=== PATIENT | female | born 1995 | race Caucasian/White ===

== ENCOUNTER 2017-04-25 10:24 | Emergency (ER) | payer MEDICAID ==
--- NOTE | 2017-04-25 11:04 | XRAY Preliminary Report ---
Exam: XR Wrist 4 View LT IMPRESSION: Normal wrist radiography. [facility] SITE ID: [id number]
--- NOTE | 2017-04-25 11:07 | XRAY Report ---
EXAM: LEFT WRIST RADIOGRAPHY EXAM DATE: 04/25/2017 10:40 AM. CLINICAL HISTORY: Left wrist hyperextension injury, pain. COMPARISON: None. TECHNIQUE: 4 views. FINDINGS: Bones: Normal. No fractures or bone lesions. Joints: Normal. No subluxations. Soft Tissues: Normal. No soft tissue swelling. IMPRESSION: Normal wrist radiography. [facility] Referring Provider Line: [phone] SITE ID: [id number]
[2017-04-25] MEDS ORDERED: ACETAMINOPHEN 325 MG TABLET PO STA (12:03)
[2017-04-25] MEDS ORDERED: ONDANSETRON ODT 4 MG TABLET TL STA (12:03)
[2017-04-25] MEDS ORDERED: ONDANSETRON ODT 4 MG TABLET ONE ×2 (12:06→12:13)
[2017-04-25] MEDS ORDERED: ACETAMINOPHEN 325 MG TABLET PO ONE (12:07)
[2017-04-25] MEDS ORDERED: HYDROcod/ACETAM 5/325 MG TABLET PO STA (12:09)
--- NOTE | 2017-04-25 12:12 | ED Physician Documentation ---
PD HPI UPPER EXT INJURY - Stated complaint Stated Complaint: LEFT HAND PX - Chief complaint Chief Complaint: Ext Problem - History obtained from History obtained from: Patient, Family - History of Present Illness Location: Left, Wrist Type of injury: Other (states was using her hand to get up and now has pain in the L wrist.) Where injury occurred: Home Timing - onset: Yesterday Timing - duration: Days (1) Timing - details: Gradual onset Pain level max: 6 Pain level now: 5 Improved by: Rest, Ice, Immobilization Worsened by: Moving, Palpating Associated symptoms: No: Weakness, Numbness, Tingling, Swelling, Discolored Similar symptoms before: Has not had sx before Review of Systems : denies: Now EGA Neurologic: denies: Focal weakness, Numbness PD PAST MEDICAL HISTORY - Past Medical History Past Medical History: Yes Psych: Anxiety, Post traumatic stress disorder - Past Surgical History Past Surgical History: Yes HEENT: Tonsil/Adenoidectomy - Present Medications Home Medications: Ambulatory Orders Medication Instructions Recorded Confirmed Gabapentin 0 mg PO DAILY 04/25/17 04/25/17 Hydrocodone/Acetaminophen 1 - 2 each PO Q6H PRN #14 tablet 04/25/17 [Hydrocodon-Acetaminophen 5-325] - Allergies Allergies/Adverse Reactions: Allergies Allergy/AdvReac Type Severity Reaction Status Date / Time NSAIDS (Non-Steroidal Allergy Anaphylaxis Verified 04/25/17 10:34 Anti-Inflamma - Social History Does the pt smoke?: Yes Smoking Status: Current every day smoker PD ED PE NORMAL - Vitals Vital signs reviewed: Yes - General General: Alert and oriented X 3, No acute distress - Derm Derm: Warm and dry - Extremities Extremities: Other (L wrist - Diffusely tender to palpation about the left wrist. No specific point tenderness. No scaphoid tenderness. Neurovascularly intact) - Neuro Neuro: Alert and oriented X 3 - Psych Psych: Normal mood, Normal affect Results - Vitals Vitals: Vital Signs - 24 hr 04/25/17 10:30 Temperature 36.4 C L Heart Rate 87 Respiratory 18 Rate Blood Pressure 96/62 O2 Saturation 97 Oxygen O2 Source Room air - Rads (name of study) Left wrist x-ray Radiology: Prelim report reviewed, EMP read contemporaneously, See rad report ( Normal) PD MEDICAL DECISION MAKING - ED course Complexity details: reviewed results, re-evaluated patient, considered differential, d/w patient, d/w family ED course: Patient is a 22-year-old female who presents to the emergency department with left wrist pain after pushing off on the left wrist. No acute findings on x- ray. No snuffbox tenderness to suggest occult scaphoid fracture. Placed in a Velcro wrist splint for comfort. Will prescribe a small amount of pain medication for home and have her follow-up with her doctor. Patient and family counseled regarding signs and symptoms for which I believe and urgent re- evaluation would be necessary. Patient with good understanding of and agreement to plan and is comfortable going home at this time This document was made in part using voice recognition software. While efforts are made to proofread this document, sound alike and grammatical errors may occur. Departure - Departure Disposition: 01 Home, Self Care Clinical Impression: Left wrist sprain Qualifiers: Encounter type: initial encounter Qualified Code(s): S63.502A - Unspecified sprain of left wrist, initial encounter Condition: Good Instructions: ED Sprain Wrist Follow-Up: your,doctor in 1 week [Other] Prescriptions: Hydrocodone/Acetaminophen [Hydrocodon-Acetaminophen 5-325] 1 - 2 each PO Q6H PRN #14 tablet PRN Reason: pain Comments: Your x-ray is normal today. Wear the splint for the next several days. Then take the splint off and start to gently move your wrist. If you are still having pain in 1 week, you should follow-up with your doctor for repeat x-rays. Do not drink alcohol or drive while on narcotic pain medicine. Note that many narcotic pain relievers also contain tylenol/acetaminophen. Please ensure that your total dose of acetaminophen from all sources does not exceed 3 grams (3000mg) per day. You may constipated on this medication, take a stool softener such as "Colace" twice a day while you are on it. Also recommend a [id number]-kws-jtgbykw laxative such as senna or MiraLAX any day that you do not have a bowel movement. If you received narcotic pain medication in the emergency department, do not drive or operate machinery for the next 24 hours.
[2017-04-25] MEDS ORDERED: HYDROcod/ACETAM 5/325 MG TABLET ONE ×2 (12:13→12:14)
[2017-04-25 12:24] VITALS: BP 100/71
== END 2017-04-25 12:35 | disposition home or self-care (01) ==
LOC: ED 10:24
DX: S63.502A Unspecified sprain of left wrist, initial encounter (principal); X50.9XXA Other and unspecified overexertion or strenuous movements or postures, initial encounter; F17.200 Nicotine dependence, unspecified, uncomplicated
CPT/HCPCS: 73110; 99283; A9270; Q0162

== ENCOUNTER 2017-05-21 16:40 | Emergency (ER) | payer MEDICAID ==
[2017-05-21] MEDS ORDERED: HYDROcod/ACETAM 5/325 MG TABLET PO STA (17:29)
[2017-05-21 17:32] LABS: BILIRUBIN,URINE NEGATIVE (NEGATIVE); PH,URINE 6.5 PH (5.0-7.5)
[2017-05-21 17:34] LABS: UA CHARGE (STRIP ONLY) YES; UR CULTURE IF IND NOT INDICATED
[2017-05-21 17:35] LABS: HCG UR QUAL NEGATIVE
[2017-05-21] MEDS ORDERED: ONDANSETRON ODT 4 MG TABLET TL STA (17:40)
[2017-05-21] MEDS ORDERED: HYDROcod/ACETAM 5/325 MG TABLET ONE (17:46)
[2017-05-21] MEDS ORDERED: ONDANSETRON ODT 4 MG TABLET ONE (17:46)
--- NOTE | 2017-05-21 18:02 | ED Physician Documentation ---
PD HPI ABD PAIN - Stated complaint Stated Complaint: BACK/KIDNEY PX - Chief complaint Chief Complaint: UTI - History obtained from History obtained from: Patient - History of Present Illness Timing - duration: Weeks (1) Timing - details: Intermittant Associated symptoms: Nausea. No: Fever, Vomiting Similar symptoms before: Diagnosis (Reports history of similar symptoms with kidney infection about one year ago.) - Additional information Additional information: The patient is a 22-year-old female who presents with mid to lower back pain that started about one week ago and has been since that time. The pain is worse with urination. She reports frequency of urination and low-grade fever. She is unsure of her last menstrual period, stating she has an IUD. She reports history of similar symptoms about one year ago with a kidney infection. Review of Systems Constitutional: reports: Fever (low-grade) Nose: denies: Congestion Cardiac: denies: Chest pain / pressure Respiratory: denies: Dyspnea, Cough GI: reports: Nausea. denies: Vomiting, Diarrhea : reports: Frequency, LMP (unsure). denies: Dysuria, Vaginal bleeding Skin: denies: Rash Musculoskeletal: reports: Back pain (mid to lower back). denies: Extremity pain Neurologic: denies: Focal weakness, Numbness, Headache PD PAST MEDICAL HISTORY - Past Medical History Cardiovascular: None Respiratory: None Endocrine/Autoimmune: None GI: None Psych: Anxiety, Post traumatic stress disorder - Past Surgical History Past Surgical History: Yes HEENT: Tonsil/Adenoidectomy - Present Medications Home Medications: Ambulatory Orders Medication Instructions Recorded Confirmed Gabapentin 0 mg PO DAILY 04/25/17 04/25/17 Hydrocodone/Acetaminophen 1 - 2 each PO Q6H PRN #14 tablet 04/25/17 [Hydrocodon-Acetaminophen 5-325] Promethazine [Phenergan] 25 - 50 mg PO Q6H PRN #10 tab 05/21/17 - Allergies Allergies/Adverse Reactions: Allergies Allergy/AdvReac Type Severity Reaction Status Date / Time NSAIDS (Non-Steroidal Allergy Anaphylaxis Verified 05/21/17 16:59 Anti-Inflamma - Social History Does the pt smoke?: Yes Smoking Status: Current every day smoker PD ED PE NORMAL - Vitals Vital signs reviewed: Yes (normal) - General General: Alert and oriented X 3, Well developed/nourished - HEENT HEENT: Atraumatic, EOMI - Neck Neck: No adenopathy, No JVD - Cardiac Cardiac: RRR, No murmur - Respiratory Respiratory: No respiratory distress, Clear bilaterally - Abdomen Abdomen: Soft, Non tender, No organomegaly - Back Back: Other (Mild tenderness to palpation of the paraspinous musculature bilaterally in the lower thoracic region.) - Derm Derm: No rash - Extremities Extremities: No edema, No calf tenderness / cord - Neuro Neuro: Alert and oriented X 3, No motor deficit, No sensory deficit Results - Vitals Vitals: Oxygen O2 Source Room air - Labs Labs: Laboratory Tests 05/21/17 05/21/17 05/21/17 17:25 17:25 17:25 WBC RBC Hgb Hct MCV MCH MCHC RDW Plt Count MPV Neut # Lymph # [place] # Eos # Baso # Absolute Nucleated RBC Nucleated RBCs Sodium Potassium Chloride Carbon Dioxide Anion Gap BUN Creatinine Estimated GFR (MDRD) Glucose Calcium Total Bilirubin AST ALT Alkaline Phosphatase Total Protein Albumin Globulin Albumin/Globulin Ratio Lipase Urine Color YELLOW Urine Clarity CLEAR Urine pH 6.5 Ur Specific [place] 1.010 1.010 Urine Protein NEGATIVE Urine Glucose (UA) NEGATIVE Urine Ketones NEGATIVE Urine Occult Blood NEGATIVE Urine Nitrite NEGATIVE Urine Bilirubin NEGATIVE Urine Urobilinogen 0.2 (NORMAL) Ur Leukocyte Esterase NEGATIVE Ur Microscopic Review NOT INDICATED Urine Culture Comments NOT INDICATED Urine HCG, Qual NEGATIVE Urine Opiates Screen NEGATIVE Ur Oxycodone Screen NEGATIVE Urine Methadone Screen NEGATIVE Ur Propoxyphene Screen NEGATIVE Ur Barbiturates Screen NEGATIVE Ur Tricyclics Screen NEGATIVE Ur Phencyclidine Scrn NEGATIVE Ur Amphetamine Screen NEGATIVE U Methamphetamines Scrn NEGATIVE U Benzodiazepines Scrn NEGATIVE Urine Cocaine Screen NEGATIVE U Cannabinoids Screen POSITIVE H 05/21/17 05/21/17 18:25 18:25 WBC 9.5 RBC 4.61 Hgb 14.2 Hct 42.7 MCV 92.7 MCH 30.9 MCHC 33.3 RDW 13.1 Plt Count 275 MPV 7.9 Neut # 5.4 Lymph # 3.3 [place] # 0.6 Eos # 0.1 Baso # 0.0 Absolute Nucleated RBC 0.01 Nucleated RBCs 0.1 Sodium 137 Potassium 4.0 Chloride 104 Carbon Dioxide 26 Anion Gap 7.0 BUN 12 Creatinine 0.5 Estimated GFR (MDRD) 153 Glucose 101 H Calcium 10.7 H Total Bilirubin 0.5 AST 24 ALT 21 Alkaline Phosphatase 42 Total Protein 7.5 Albumin 4.6 Globulin 2.9 Albumin/Globulin Ratio 1.6 Lipase 23 Urine Color Urine Clarity Urine pH Ur Specific [place] Urine Protein Urine Glucose (UA) Urine Ketones Urine Occult Blood Urine Nitrite Urine Bilirubin Urine Urobilinogen Ur Leukocyte Esterase Ur Microscopic Review Urine Culture Comments Urine HCG, Qual Urine Opiates Screen Ur Oxycodone Screen Urine Methadone Screen Ur Propoxyphene Screen Ur Barbiturates Screen Ur Tricyclics Screen Ur Phencyclidine Scrn Ur Amphetamine Screen U Methamphetamines Scrn U Benzodiazepines Scrn Urine Cocaine Screen U Cannabinoids Screen PD MEDICAL DECISION MAKING - ED course Complexity details: reviewed results, re-evaluated patient, considered differential, d/w patient ED course: The patient's presentation is significant for mild lower back pain of uncertain etiology. There is no evidence to suggest a urinary tract infection or pyelonephritis. I doubt pancreatitis, with a normal lipase. CBC and chemistry panel are normal, as is urinalysis. Treatment in the emergency department included administration of ondansetron 4 mg orally, and Vicodin 1 tablet orally. She is being discharged with a prescription for Phenergan. I discussed with her the results of her workup, symptomatic treatment and outpatient follow-up, as well as potentially worrisome signs or symptoms that should prompt reevaluation in the emergency department. Departure - Departure Disposition: 01 Home, Self Care Clinical Impression: Nausea Back pain Qualifiers: Back pain location: thoracic back pain Chronicity: acute Back pain laterality: bilateral Qualified Code(s): M54.6 - Pain in thoracic spine Condition: Stable Instructions: ED Flank Pain Uncertain Cause Prescriptions: Promethazine [Phenergan] 25 - 50 mg PO Q6H PRN #10 tab PRN Reason: Nausea / Vomiting Comments: 1. Drink plenty of fluids. 2. You can use Phenergan as prescribed if needed for nausea. 3. You can use Tylenol, up to 650 mg 4 times daily if needed for pain. 4. Follow-up with primary physician within 2 weeks if you can schedule an appointment. 5. Return to the emergency department if you develop increasing pain, persistent vomiting, or otherwise worsening symptoms. Discharge Date/Time: 05/21/17 19:00
[2017-05-21 18:21] VITALS: BP 120/81
[2017-05-21 18:36] LABS: BASOPHILS % (AUTO) 0.4 %; EOSINOPHILS # (AUTO) 0.1 10^3/uL (0.0-0.7); EOSINOPHILS % (AUTO) 0.9 %; HCT - HEMATOCRIT 42.7 % (37.0-47.0); HGB - HEMOGLOBIN 14.2 g/dL (12.0-16.0); LYMPHOCYTES # (AUTO) 3.3 10^3/uL (1.5-3.5); LYMPHOCYTES % (AUTO) 34.9 %; MEAN CORPUSCULAR HEMOGLOBIN 30.9 pg (27.0-31.0); MEAN CORPUSCULAR HGB CONC 33.3 g/dL (32.0-36.0); MEAN CORPUSCULAR VOLUME 92.7 fL (81.0-99.0); MEAN PLATELET VOLUME 7.9 fL (7.9-10.8); MONOCYTES # (AUTO) 0.6 10^3/uL (0.0-1.0); MONOCYTES % (AUTO) 6.8 %; NEUTROPHILS # (AUTO) 5.4 10^3/uL (1.5-6.6); NUCLEATED RED BLOOD CELLS AUTO 0.1 /100WBC; RED BLOOD COUNT 4.61 10^6/uL (4.20-5.40); RED CELL DISTRIBUTION WIDTH 13.1 % (12.0-15.0); UNCORRECTED WHITE BLOOD COUNT 9.5 x10^3/uL; WHITE BLOOD COUNT 9.5 x10^3/uL (4.8-10.8)
[2017-05-21 18:47] LABS: ALBUMIN/GLOBULIN RATIO 1.6 (1.0-2.2); BILIRUBIN,TOTAL 0.5 mg/dL (0.2-1.0); CALCIUM 10.7 mg/dL (8.5-10.3); CREATININE 0.5 mg/dL (0.4-1.0); TOTAL PROTEIN 7.5 g/dL (6.7-8.2)
== END 2017-05-21 19:00 | disposition home or self-care (01) ==
LOC: ED 16:40
DX: M54.6 Pain in thoracic spine (principal); F17.200 Nicotine dependence, unspecified, uncomplicated
CPT/HCPCS: 36415; 80053; 80306; 81003; 81025; 83690; 85025; 99283; A9270; Q0162; 81001; 87086

== ENCOUNTER 2017-06-25 18:13 | Emergency (ER) | payer MEDICAID, OTHER ==
[2017-06-25] MEDS ORDERED: HYDROmorphone 1 MG/ML SYRINGE IM STA (18:25)
--- NOTE | 2017-06-25 18:27 | ED Physician Documentation ---
PD HPI Fall - Stated complaint Stated Complaint: L LE PX - History obtained from History obtained from: Patient - History of Present Illness Mechanism of injury: Other (She was walking down stairs at work and she slipped and a box fell on her knee and she kind of crumpled down and now complains of burning pain down the entirety of the left leg focused in the knee and the hip. She has not tried to walk since the accident. No back pain or other injuries. No possibility of .) Review of Systems Constitutional: reports: Reviewed and negative Cardiac: reports: Reviewed and negative Respiratory: reports: Reviewed and negative GI: denies: Abdominal Pain, Nausea PD PAST MEDICAL HISTORY - Past Medical History Cardiovascular: None Respiratory: None Endocrine/Autoimmune: None GI: None Psych: Anxiety, Post traumatic stress disorder - Past Surgical History Past Surgical History: Yes HEENT: Tonsil/Adenoidectomy - Present Medications Home Medications: Ambulatory Orders Medication Instructions Recorded Confirmed Gabapentin 300 mg PO TID #30 capsule 06/25/17 HYDROcod/ACETAM 5/325 [[place] 5/325] 1 - 2 ea PO Q6H PRN #15 tablet 06/25/17 - Allergies Allergies/Adverse Reactions: Allergies Allergy/AdvReac Type Severity Reaction Status Date / Time NSAIDS (Non-Steroidal Allergy Anaphylaxis Verified 05/21/17 16:59 Anti-Inflamma - Social History Does the pt smoke?: Yes Smoking Status: Current every day smoker PD ED PE NORMAL - Vitals Vital signs reviewed: Yes - General General: Alert and oriented X 3, No acute distress - Abdomen Abdomen: Normal bowel sounds, Soft, Non tender - Back Back: No CVA TTP, No spinal TTP - Extremities Extremities: Other (Left knee has a little bit of swelling but no effusion, she is severely limited range of motion due to pain and diffuse tenderness about the knee but no focal bony tenderness. The hip is mildly tender with palpation but she does not have inguinal pain with internal or external rotation. Of note she has diminished sensation especially in the lateral left calf with burning pain down the whole leg more consistent with sciatica than any acute injury of the leg itself. She hasequal patellar reflexes, But she does have a somewhat diminished Achilles reflex on the left but that may be due to pain. I am unable to test strength throughout the left leg, because she is limited by pain.) - Neuro Neuro: Alert and oriented X 3, Normal speech - Psych Psych: Normal mood, Normal affect Results - Vitals Vitals: Vital Signs - 24 hr 06/25/17 06/25/17 18:24 18:53 Temperature 36.3 C L Heart Rate 95 76 Respiratory 18 18 Rate Blood Pressure 108/72 O2 Saturation 100 96 Oxygen O2 Source Room air PD MEDICAL DECISION MAKING - ED course ED course: 22-year-old woman presents with a left leg injury that actually seems clinically more coincident with sciatica than anything else, x-rays were pursued of the most painful spots without relevant findings. Feeling better after milligram of Dilaudid IM. Departure - Departure Disposition: Home, Self Care Clinical Impression: Sciatica of left side Sprain of left knee/leg Qualifiers: Encounter type: initial encounter Qualified Code(s): S83.92XA - Sprain of unspecified site of left knee, initial encounter Condition: Good Record reviewed to determine appropriate education?: Yes Instructions: ED Sciatica Follow-Up: [facility] [Provider Group] Prescriptions: Gabapentin 300 mg PO TID #30 capsule HYDROcod/ACETAM 5/325 [[place] 5/325] 1 - 2 ea PO Q6H PRN #15 tablet PRN Reason: Pain Comments: Call your doctor to arrange a follow-up appointment, make the next available appointment. In the interim, return anytime if worse or if new symptoms develop. Do not drink or drive while taking narcotic pain medication. Note that many narcotic pain relievers also contain Tylenol/acetaminophen. Please ensure that your total dose of acetaminophen from all sources does not exceed 3 g (3000 mg) per day. You may get constipated while on this medication. Take a stool softener such as Colace twice a day while you are on it. Also add an [id number] laxative such as senna or MiraLAX on any day that you do not have a bowel movement. If you received a narcotic pain medication or sedative while in the emergency department, do not drive for the next 24 hours. Forms: Activity restrictions
[2017-06-25 18:31] VITALS: BP 108/72
[2017-06-25] MEDS ORDERED: HYDROmorphone 1 MG/ML SYRINGE ONE (18:35)
--- NOTE | 2017-06-25 19:42 | XRAY Preliminary Report ---
Exam: XR Knee 4 View LT IMPRESSION: Normal knee radiography. [facility] SITE ID: [id number]
--- NOTE | 2017-06-25 19:44 | XRAY Report ---
EXAM: LEFT KNEE RADIOGRAPHY EXAM DATE: 06/25/2017 06:55 PM. CLINICAL HISTORY: Hip/knee pain after a fall. COMPARISON: None. TECHNIQUE: 4 views. FINDINGS: Bones: Normal. No fractures or bone lesions. Joints: Normal. No effusion. No subluxations. Soft Tissues: Normal. No soft tissue swelling. IMPRESSION: Normal knee radiography. [facility] Referring Provider Line: [phone] SITE ID: [id number]
[2017-06-25] MEDS ORDERED: HYDROcod/ACETAM 5/325 MG TABLET PO STA (19:46)
[2017-06-25] MEDS ORDERED: GABAPENTIN 100 MG CAPSULE PO STA (19:46)
--- NOTE | 2017-06-25 19:50 | XRAY Preliminary Report ---
Exam: XR Hip w/Pelvis 2-3V LT IMPRESSION: Normal pelvis and hip radiography. [facility] SITE ID: [id number]
--- NOTE | 2017-06-25 19:53 | XRAY Report ---
EXAM: LEFT HIP AND PELVIS RADIOGRAPHY EXAM DATE: 06/25/2017 07:30 PM. HISTORY: Hip/knee pain after a fall. COMPARISONS: None. TECHNIQUE: 1 view of the pelvis and 1 view of the hip. FINDINGS: Bones: Normal. No fracture or bone lesion. Joints: The bilateral hip, pubis symphysis, and sacroiliac joints are preserved. Soft Tissues: Normal. No soft tissue swelling. IMPRESSION: Normal pelvis and hip radiography. [facility] Referring Provider Line: [phone] SITE ID: [id number]
[2017-06-25] MEDS ORDERED: GABAPENTIN 300 MG CAPSULE ONE (19:56)
[2017-06-25] MEDS ORDERED: HYDROcod/ACETAM 5/325 MG TABLET ONE (19:56)
== END 2017-06-25 20:09 | disposition home or self-care (01) ==
LOC: ED 18:13
DX: M54.32 Sciatica, left side (principal); S83.92XA Sprain of unspecified site of left knee, initial encounter; W18.40XA Slipping, tripping and stumbling without falling, unspecified, initial encounter; W22.8XXA Striking against or struck by other objects, initial encounter; Y93.01 Activity, walking, marching and hiking; Y99.0 Civilian activity done for income or pay; F17.200 Nicotine dependence, unspecified, uncomplicated
CPT/HCPCS: 1040M; 73502; 73564; 96372; 99283; A9270; J1170

== ENCOUNTER 2017-06-28 19:29 | Emergency (ER) | payer OTHER, MEDICAID ==
[2017-06-28] MEDS ORDERED: HYDROmorphone 1 MG/ML SYRINGE IM STA (20:04)
[2017-06-28] MEDS ORDERED: DEXAMETHASONE 10 MG/ML VIAL IM STA (20:05)
--- NOTE | 2017-06-28 20:07 | ED Physician Documentation ---
History of Present Illness - Stated complaint Stated Complaint: L HIP,LEG PAIN - Chief complaint Chief Complaint: Ext Problem - History obtained from History obtained from: Patient, Family - History of Present Illness Timing: Other (She was seen her on Wednesday after a minor injury and had some symptoms concerning for an acute lumbar radiculopathy/sciatica. Over the weekend she really has not gotten any better with the gabapentin and hydrocodone and now is almost completely insensate to the left foot without saddle anesthesia or fevers. There is no incontinence.) Review of Systems Constitutional: denies: Fever, Chills Cardiac: denies: Chest pain / pressure, Palpitations Respiratory: denies: Dyspnea, Cough GI: denies: Abdominal Pain PD PAST MEDICAL HISTORY - Past Medical History Past Medical History: Yes Cardiovascular: None Respiratory: None Endocrine/Autoimmune: None GI: None Psych: Anxiety, Post traumatic stress disorder - Past Surgical History Past Surgical History: Yes HEENT: Tonsil/Adenoidectomy - Present Medications Home Medications: Ambulatory Orders Medication Instructions Recorded Confirmed Gabapentin 300 mg PO TID #30 capsule 06/25/17 06/28/17 HYDROcod/ACETAM 5/325 [[place] 5/325] 1 - 2 ea PO Q6H PRN #15 tablet 06/25/17 Oxycodone HCl/Acetaminophen 1 - 2 tab PO Q4H PRN #15 tablet 06/28/17 [Percocet 5-325 mg Tablet] predniSONE [Deltasone] 20 mg PO [id number] #21 tab 06/28/17 - Allergies Allergies/Adverse Reactions: Allergies Allergy/AdvReac Type Severity Reaction Status Date / Time NSAIDS (Non-Steroidal Allergy Anaphylaxis Verified 06/28/17 19:41 Anti-Inflamma - Social History Does the pt smoke?: Yes Smoking Status: Current every day smoker Does the pt drink ETOH?: No Does the pt have substance abuse?: No Substance Use and Type: Marijuana - Immunizations Immunizations are current?: No PD ED PE NORMAL - Vitals Vital signs reviewed: Yes - General General: Alert and oriented X 3, No acute distress - Abdomen Abdomen: Soft, Non tender - Back Back: No spinal TTP - Extremities Extremities: Other (She has equal patellar reflexes and hyperesthesia on the lateral side of the left thigh with equal medial thigh sensation. She is almost insensate the left side of the lateral foot. And has no Achilles reflex on the left.) - Neuro Neuro: Alert and oriented X 3, Normal speech - Psych Psych: Normal mood, Normal affect Results - Vitals Vitals: Vital Signs - 24 hr 06/28/17 19:36 Temperature 36.9 C Heart Rate 87 Respiratory 17 Rate Blood Pressure 104/72 O2 Saturation 98 Oxygen O2 Source Room air PD MEDICAL DECISION MAKING - ED course ED course: 22-year-old woman with now a pretty clear lumbar radiculopathy at the L5-S1 level on the left without evidence of cauda equina or infectious symptoms. 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 Departure - Departure Disposition: 01 Home, Self Care Clinical Impression: Lumbar radiculopathy, acute, Sciatica of left side Condition: Good Record reviewed to determine appropriate education?: Yes Instructions: ED Sciatica Follow-Up: [facility] [Provider Group] Prescriptions: predniSONE [Deltasone] 20 mg PO [id number] #21 tab Oxycodone HCl/Acetaminophen [Percocet 5-325 mg Tablet] 1 - 2 tab PO Q4H PRN #15 tablet PRN Reason: Pain Comments: RETURN IF YOU WORSEN, DEVELOP FEVERS. NEED TO SET UP PRIMARY CARE PATRICIA Forms: Activity restrictions
[2017-06-28] MEDS ORDERED: HYDROmorphone 1 MG/ML SYRINGE ONE (20:14)
[2017-06-28] MEDS ORDERED: DEXAMETHASONE 10 MG/ML VIAL ONE (20:15)
[2017-06-28] MEDS ORDERED: DEXAMETHASONE 10 MG/ML VIAL PO STA (20:21)
[2017-06-28] MEDS ORDERED: CHERRY SYRUP 10 ML UDC PO ONE (20:24)
[2017-06-28 20:40] VITALS: BP 113/73
== END 2017-06-28 20:38 | disposition home or self-care (01) ==
LOC: ED 19:29
DX: M54.42 Lumbago with sciatica, left side (principal); M54.16 Radiculopathy, lumbar region; F17.200 Nicotine dependence, unspecified, uncomplicated
CPT/HCPCS: 96372; 99282; 99283; A9270; J1170

== ENCOUNTER 2017-07-03 18:40 | Emergency (ER) | payer MEDICAID, OTHER ==
[2017-07-03] MEDS ORDERED: ACETAMINOPHEN 325 MG TABLET PO STA (20:20)
[2017-07-03] MEDS ORDERED: CYCLOBENZAPRINE 10 MG TABLET PO STA (20:20)
[2017-07-03] MEDS ORDERED: DEXAMETHASONE 10 MG/ML VIAL PO STA (20:20)
--- NOTE | 2017-07-03 20:21 | ED Physician Documentation ---
PD HPI LOWER EXT INJURY - Stated complaint Stated Complaint: LEG PX - Chief complaint Chief Complaint: Ext Problem - History obtained from History obtained from: Patient, Friend - History of Present Illness PD HPI LOW EXT INJURY LOCATION: Left, Upper leg, Lower leg, Buttock Type of injury: Fall Where injury occurred: Work Timing - onset: How many weeks ago (1) Timing - details: Abrupt onset Worsened by: Moving, Palpating Associated symptoms: Numbness. No: Weakness Contributing factors: No: Anticoagulated, Prior ortho surgery Similar symptoms before: Work up / diagnostics, Treatment Recently seen: Emergency Dept - Additional information Additional information: Patient is a 22 year old female who is presenting to the emergency department for left leg pain. patient states that she fell and hurt her knee at work about a week ago. patient states that since that time she has had muscle spasms in her leg and continual pain. Patient denied any new trauma. Review of Systems Constitutional: denies: Fever, Chills Eyes: denies: Discharge, Irritation Ears: denies: Ear pain, Drainage/discharge Nose: denies: Rhinorrhea / runny nose, Congestion Cardiac: denies: Chest pain / pressure GI: denies: Nausea, Vomiting : denies: Dysuria, Frequency, Discharge, Vaginal bleeding Skin: denies: Rash, Lesions Musculoskeletal: reports: Extremity pain, Joint pain. denies: Extremity swelling, Joint swelling Neurologic: reports: Generalized weakness, Numbness. denies: Difficulty speaking, Near syncope, Altered mental status, Headache, Head injury Immunocompromised: denies: Immunocompromised PD PAST MEDICAL HISTORY - Past Medical History Cardiovascular: None Respiratory: None Endocrine/Autoimmune: None GI: None Psych: Anxiety, Post traumatic stress disorder - Past Surgical History Past Surgical History: Yes HEENT: Tonsil/Adenoidectomy - Present Medications Home Medications: Ambulatory Orders Medication Instructions Recorded Confirmed predniSONE [Deltasone] 20 mg PO [id number] #21 tab 06/28/17 07/03/17 Cyclobenzaprine [Flexeril] 10 mg PO TID PRN #10 tablet 07/03/17 - Allergies Allergies/Adverse Reactions: Allergies Allergy/AdvReac Type Severity Reaction Status Date / Time NSAIDS (Non-Steroidal Allergy Anaphylaxis Verified 07/03/17 19:07 Anti-Inflamma ketorolac tromethamine * AdvReac Emesis Verified 07/03/17 20:17 [From Toradol] - Social History Does the pt smoke?: Yes Smoking Status: Current every day smoker Does the pt drink ETOH?: No Does the pt have substance abuse?: No - Immunizations Immunizations are current?: No PD ED PE NORMAL - Vitals Vital signs reviewed: Yes - General General: Alert and oriented X 3, No acute distress - HEENT HEENT: Atraumatic, PERRL - Neck Neck: Supple, no meningeal sign - Cardiac Cardiac: RRR, No murmur - Abdomen Abdomen: Non distended - Derm Derm: Normal color, Warm and dry, No rash - Extremities Extremities: No deformity, No edema - Neuro Neuro: Alert and oriented X 3, No motor deficit, Normal speech PD ED PE EXPANDED - Extremities Extremities: Left hip (tenderness of left gluteal region wiht radiation down left leg, no rash or deformity. full ROM) Results - Vitals Vitals: Vital Signs - 24 hr 07/03/17 07/03/17 19:03 20:36 Temperature 36.5 C 36.6 C Heart Rate 54 L 53 L Respiratory 18 18 Rate Blood Pressure 118/86 H 118/79 O2 Saturation 99 98 Oxygen O2 Source Room air PD MEDICAL DECISION MAKING - ED course Complexity details: reviewed old records, reviewed results, re-evaluated patient , considered differential, d/w patient ED course: Patient was seen and examined at bedside. patient was well appearing and in no acute distress. NO further imaging was required. patient had no focal deficits and was stable for discharge with outpatient follow up. Departure - Departure Disposition: 01 Home, Self Care Clinical Impression: Sciatica of left side Condition: Good Instructions: ED Sciatica Follow-Up: primary,care provider [Other] - Within 1 week Prescriptions: Cyclobenzaprine [Flexeril] 10 mg PO TID PRN #10 tablet PRN Reason: Spasms Comments: You will need to follow up with your pmd on . these types of injuries can take awhile to heal. You should apply heat to the affected area and try stretching. You can take tylenol for pain, and flexeri. If you take the flexeril you cannot drive or operate heavy machinery. Discharge Date/Time: 07/03/17 20:36
[2017-07-03] MEDS ORDERED: DEXAMETHASONE 10 MG/ML VIAL ONE (20:30)
[2017-07-03] MEDS ORDERED: CYCLOBENZAPRINE 10 MG TABLET PO ONE (20:30)
[2017-07-03] MEDS ORDERED: ACETAMINOPHEN 325 MG TABLET PO ONE (20:30)
[2017-07-03 20:38] VITALS: BP 118/79
== END 2017-07-03 20:36 | disposition home or self-care (01) ==
LOC: ED 18:40
DX: M54.32 Sciatica, left side (principal); F17.200 Nicotine dependence, unspecified, uncomplicated; Z91.81 History of falling
CPT/HCPCS: 99283; A9270

== ENCOUNTER 2017-07-20 12:56 | Outpatient (CLI) | payer MEDICAID ==
[~2017-07-20 12:56] MED LIST: ALBUTEROL NEB 2.5 MG/3 ML INH ONE
== END 2017-07-20 12:57 | disposition home or self-care (01) ==
LOC: RT 12:56
PROVIDERS: ATTEND Nurse Practitioner Family
DX: R05 Cough (principal)
CPT/HCPCS: 94664; J7613

== ENCOUNTER 2017-09-21 09:26 | Emergency (ER) | payer MEDICAID ==
[2017-09-21] MEDS ORDERED: DEXAMETHASONE 10 MG/ML VIAL PO STA (10:27)
[2017-09-21] MEDS ORDERED: IPRATROPIUM/ALBUTEROL 3 ML NEB INH STA (10:27)
[2017-09-21] MEDS ORDERED: DEXAMETHASONE 10 MG/ML VIAL ONE (10:40)
[2017-09-21] MEDS ORDERED: IPRATROPIUM/ALBUTEROL 3 ML NEB INH ONE (10:41)
[2017-09-21 11:50] VITALS: BP 99/64
--- NOTE | 2017-09-21 11:50 | XRAY Preliminary Report ---
Exam: XR CHEST 2 VIEW PA/LAT IMPRESSION: 1. Mild central peribronchial thickening, question bronchiolitis. 2. No acute infiltrate or consolidation appreciated. [facility] SITE ID: [id number]
--- NOTE | 2017-09-21 11:53 | XRAY Report ---
EXAM: CHEST RADIOGRAPHY EXAM DATE: 09/21/2017 11:22 AM. CLINICAL HISTORY: Cough and dyspnea. COMPARISON: None available. TECHNIQUE: 2 views. FINDINGS: Lungs/Pleura: No focal infiltrate or consolidation. No pneumothorax or pleural effusion. Mild central peribronchial thickening appears to be present. Mediastinum: Heart and mediastinal contours are unremarkable. Other: Convex-right thoracic scoliosis with a Santana angle measuring approximately 34 degrees. IMPRESSION: 1. Mild central peribronchial thickening, question bronchiolitis. 2. No acute infiltrate or consolidation appreciated. [facility] Referring Provider Line: [phone] SITE ID: [id number]
[2017-09-21] MEDS ORDERED: LEVALBUTEROL 1.25 MG/0.5 ML NEB INH STA (12:00)
[2017-09-21] MEDS ORDERED: LEVALBUTEROL 1.25 MG/0.5 ML NEB INH ONE (12:11)
[2017-09-21] MEDS ORDERED: SODIUM CHLORIDE INHALATION 3 ML NEB ONE (12:12)
--- NOTE | 2017-09-21 12:17 | ED Physician Documentation ---
PD HPI DYSPNEA - Stated complaint Stated Complaint: HURTS TO BREATH - Chief complaint Chief Complaint: Resp - History obtained from History obtained from: Patient - History of Present Illness Timing - onset: Today Timing - onset during: Rest Timing - details: Still present Associated symptoms: Cough Similar symptoms before: Diagnosis (History of asthma.) - Treatment prior to arrival Treatment prior to arrival: albuterol inhaler without relief - Additional information Additional information: The patient is a 22-year-old female with history of asthma, who presents complaining of "it hurts to breathe." She reports congestion and productive cough. She denies fever, headache, or sore throat. She awoke this morning with increased difficulty breathing, not improved with her albuterol inhaler. She does not smoke cigarettes. She occasionally smokes marijuana. Review of Systems Constitutional: denies: Fever Ears: denies: Tinnitus/ringing Nose: reports: Congestion Throat: reports: Sore throat Cardiac: reports: Chest pain / pressure (with inspiration.). denies: Palpitations Respiratory: reports: Dyspnea, Cough, Wheezing GI: denies: Abdominal Pain, Nausea, Vomiting : denies: Dysuria Skin: denies: Rash Musculoskeletal: denies: Back pain Neurologic: denies: Headache PD PAST MEDICAL HISTORY - Past Medical History Past Medical History: Yes Cardiovascular: None Respiratory: Asthma Endocrine/Autoimmune: None GI: None Psych: Anxiety, Post traumatic stress disorder Other Past Medical History: scoliosis - Past Surgical History Past Surgical History: Yes HEENT: Tonsil/Adenoidectomy - Present Medications Home Medications: Ambulatory Orders Medication Instructions Recorded Confirmed predniSONE [Deltasone] 20 mg PO [id number] #21 tab 06/28/17 07/03/17 Cyclobenzaprine [Flexeril] 10 mg PO TID PRN #10 tablet 07/03/17 Levalbuterol [Xopenex] 1.25 mg INH RTQ4H #30 neb 09/21/17 - Allergies Allergies/Adverse Reactions: Allergies Allergy/AdvReac Type Severity Reaction Status Date / Time NSAIDS (Non-Steroidal Allergy Anaphylaxis Verified 07/03/17 19:07 Anti-Inflamma ketorolac tromethamine * AdvReac Emesis Verified 07/03/17 20:17 [From Toradol] - Social History Does the pt smoke?: No Smoking Status: Never smoker Does the pt drink ETOH?: Yes Does the pt have substance abuse?: Yes Substance Use and Type: Marijuana - Immunizations Immunizations are current?: No Immunizations: Other immun not current - POLST Patient has POLST: No PD ED PE NORMAL - Vitals Vital signs reviewed: Yes (normal) - General General: Alert and oriented X 3, Well developed/nourished - HEENT HEENT: Atraumatic, EOMI, Ears normal, Pharynx benign - Neck Neck: Supple, no meningeal sign, No adenopathy, No JVD - Cardiac Cardiac: RRR, No murmur - Respiratory Respiratory: Other (Diffuse expiratory wheezing, with prolonged expiratory phase.) - Abdomen Abdomen: Soft, Non tender - Back Back: No CVA TTP - Derm Derm: No rash - Extremities Extremities: No edema, No calf tenderness / cord - Neuro Neuro: Alert and oriented X 3, No motor deficit, Normal speech Results - Vitals Vitals: Oxygen O2 Source Room air - Rads (name of study) CXR Radiology: Prelim report reviewed, EMP read contemporaneously, See rad report ( Mild central peribronchial thickening, question bronchiolitis. No acute infiltrate or consolidation appreciated.) PD MEDICAL DECISION MAKING - ED course Complexity details: reviewed old records, reviewed results, re-evaluated patient , considered differential, d/w patient ED course: The patient's presentation is most consistent with acute asthmatic bronchitis. Her chest x-ray reveals peribronchial thickening, without discrete infiltrate or consolidation. Treatment in the emergency department included administration of DuoNeb nebulizer, and dexamethasone 10 mg orally. She continued to have significant wheezing and poor air movement. Subsequently Xopenex nebulizer was administered, with good results. Following Xopened treatment she felt subjectively much improved, and re-auscultation of her chest reveals much improved air movement with only a few scattered wheezes. She is being discharged with a prescription for Xopenex inhaler. I discussed with her symptomatic treatment, outpatient follow-up, as well as potentially worrisome signs or symptoms that should prompt reevaluation in the emergency department. Departure - Departure Disposition: 01 Home, Self Care Clinical Impression: Bronchitis Asthma Qualifiers: Asthma severity: moderate Asthma persistence: unspecified Asthma complication type: with acute exacerbation Qualified Code(s): J45.901 - Unspecified asthma with (acute) exacerbation Condition: Stable Instructions: ED Bronchitis Asthmatic Follow-Up: [facility] [Provider Group] Prescriptions: Levalbuterol [Xopenex] 1.25 mg INH RTQ4H #30 neb Comments: Use Xopenex nebulizer as frequently as every 4 hours if needed for difficulty breathing. He can use Tylenol or ibuprofen if needed for fever or discomfort. Follow up with your primary physician within 1 week. Call to schedule an appointment. Return to the emergency department if you develop increasing difficulty breathing, or otherwise worsening symptoms. Discharge Date/Time: 09/21/17 12:57
== END 2017-09-21 12:57 | disposition home or self-care (01) ==
LOC: ED 09:26
DX: J45.901 Unspecified asthma with (acute) exacerbation (principal)
CPT/HCPCS: 71020; 94640; 94664; 99283; A9270; J7620

== ENCOUNTER 2017-11-23 14:33 | Emergency (ER) | payer MEDICAID ==
--- NOTE | 2017-11-23 15:20 | ED Physician Documentation ---
History of Present Illness - Stated complaint Stated Complaint: FEMALE /L ARM PX - Chief complaint Chief Complaint: General - History obtained from History obtained from: Patient - History of Present Illness Timing: Other (She has had her Nexplanon for too long and now it is painful and she has a rash around it. She has taken several tests at home all were negative, this was necessitated by 4 months of missed periods.) Review of Systems Constitutional: denies: Fever, Chills Throat: reports: Reviewed and negative Cardiac: reports: Reviewed and negative Respiratory: reports: Reviewed and negative PD PAST MEDICAL HISTORY - Past Medical History Cardiovascular: None Respiratory: Asthma Endocrine/Autoimmune: None GI: None Psych: Anxiety, Post traumatic stress disorder - Past Surgical History Past Surgical History: Yes HEENT: Tonsil/Adenoidectomy - Present Medications Home Medications: Ambulatory Orders Medication Instructions Recorded Confirmed Beclomethasone 80 Mcg [Qvar 80] 11/23/17 - Allergies Allergies/Adverse Reactions: Allergies Allergy/AdvReac Type Severity Reaction Status Date / Time NSAIDS (Non-Steroidal Allergy Anaphylaxis Verified 07/03/17 19:07 Anti-Inflamma ketorolac tromethamine * AdvReac Emesis Verified 07/03/17 20:17 [From Toradol] - Social History Does the pt smoke?: No Smoking Status: Never smoker Does the pt drink ETOH?: Yes Does the pt have substance abuse?: Yes - Immunizations Immunizations are current?: No Immunizations: Other immun not current - POLST Patient has POLST: No PD ED PE NORMAL - Vitals Vital signs reviewed: Yes - General General: Alert and oriented X 3, No acute distress - Extremities Extremities: Other (Nexplanon palpable in the left brachial area without tenderness or evidence of infection.) - Neuro Neuro: Alert and oriented X 3, Normal speech Results - Vitals Vitals: Vital Signs - 24 hr 11/23/17 14:37 Temperature 36.5 C Heart Rate 66 Respiratory 18 Rate Blood Pressure 106/68 O2 Saturation 99 Oxygen O2 Source Room air - Labs Labs: Laboratory Tests 11/23/17 15:30 Ur Specific [place] 1.015 Urine HCG, Qual NEGATIVE Departure - Departure Disposition: Home, Self Care Clinical Impression: Encounter for surveillance of Nexplanon subdermal contraceptive Condition: Good Record reviewed to determine appropriate education?: Yes Follow-Up: [facility] [Provider Group] Comments: Call the clinic on this form to arrange a follow-up appointment to have her Nexplanon removed and discuss alternative methods of control. Return if worse.
[2017-11-23 16:03] LABS: HCG UR QUAL NEGATIVE
[2017-11-23 16:26] VITALS: BP 108/66
== END 2017-11-23 16:24 | disposition home or self-care (01) ==
LOC: ED 14:33
DX: Z30.8 Encounter for other contraceptive management (principal)
CPT/HCPCS: 81025; 99282; 99283

== ENCOUNTER 2018-01-31 18:00 | Emergency (ER) | payer MEDICAID ==
--- NOTE | 2018-01-31 19:57 | ED Physician Documentation ---
PD HPI HEENT - Stated complaint Stated Complaint: LEFT EAR HEARING DIFFICULTY - Chief complaint Chief Complaint: Heent - History obtained from History obtained from: Patient - History of Present Illness Timing - onset: How many weeks ago (has had URI/coguh symptoms for a week, and now with ear pains, tavo left, for a day.) Timing - duration: Days (1-2 days of ear pain, rapidly worsening), Weeks (of URI symptoms) Timing - details: Still present Location: Left ear, Sinuses, Nose Associated symptoms: Congestion, Rhinorrhea, Swollen nodes. No: Fever, Facial swelling Similar symptoms before: Has not had sx before Recently seen: Not recently seen Review of Systems Constitutional: reports: Chills. denies: Fever Ears: reports: Ear pain (for a day) Nose: reports: Rhinorrhea / runny nose, Congestion (for a week), Sinus pressure / pain Throat: denies: Sore throat Cardiac: denies: Chest pain / pressure Respiratory: reports: Cough. denies: Dyspnea, Wheezing GI: denies: Nausea, Vomiting, Diarrhea Skin: denies: Rash PD PAST MEDICAL HISTORY - Past Medical History Past Medical History: Yes Cardiovascular: None Respiratory: Asthma Endocrine/Autoimmune: None GI: None Psych: Anxiety, Post traumatic stress disorder - Past Surgical History Past Surgical History: Yes HEENT: Tonsil/Adenoidectomy - Present Medications Home Medications: Ambulatory Orders Medication Instructions Recorded Confirmed Beclomethasone 80 Mcg [Qvar 80] 11/23/17 Amoxicillin 500 mg PO TID #20 capsule 01/31/18 Cetirizine [ZyrTEC] 10 mg PO DAILY #15 tablet 01/31/18 Dexamethasone [Decadron] 4 mg PO DAILY #5 tablet 01/31/18 HYDROcod/ACETAM 5/325 [[place] 5/325] 1 tab PO Q6H PRN #15 tablet 01/31/18 - Allergies Allergies/Adverse Reactions: Allergies Allergy/AdvReac Type Severity Reaction Status Date / Time NSAIDS (Non-Steroidal Allergy Anaphylaxis Verified 07/03/17 19:07 Anti-Inflamma ketorolac tromethamine * AdvReac Emesis Verified 07/03/17 20:17 [From Toradol] - Social History Does the pt smoke?: No Smoking Status: Former smoker Does the pt drink ETOH?: Yes Does the pt have substance abuse?: Yes Substance Use and Type: Marijuana - Immunizations Immunizations are current?: No Immunizations: Other immun not current - POLST Patient has POLST: No PD ED PE NORMAL - Vitals Vital signs reviewed: Yes - General General: Alert and oriented X 3, Well developed/nourished, Other (appears in pain. ) - HEENT HEENT: Pharynx benign. No: Ears normal (both TMs very red, but left is tense bulging without rupture at this time. ) - Neck Neck: Supple, no meningeal sign, Other (anterior adenopathy) - Cardiac Cardiac: RRR, No murmur - Respiratory Respiratory: Clear bilaterally - Derm Derm: Normal color, Warm and dry, No rash Results - Vitals Vitals: Oxygen O2 Source Room air PD MEDICAL DECISION MAKING - ED course Complexity details: considered differential (significantly tight/bulging left TM from infection. Not ruptured as yet. ), d/w patient Departure - Departure Disposition: 01 Home, Self Care Clinical Impression: Otitis media Qualifiers: Otitis media type: suppurative Chronicity: acute Laterality: bilateral Recurrence: not specified as recurrent Spontaneous tympanic membrane rupture: without spontaneous rupture Qualified Code(s): H66.003 - Acute suppurative otitis media without spontaneous rupture of ear drum, bilateral Upper respiratory infection Qualifiers: URI type: unspecified URI Qualified Code(s): J06.9 - Acute upper respiratory infection, unspecified Condition: Stable Record reviewed to determine appropriate education?: Yes Instructions: ED Otitis Media Acute Adult, ED URI Viral W Wheezing Prescriptions: Amoxicillin 500 mg PO TID #20 capsule Cetirizine [ZyrTEC] 10 mg PO DAILY #15 tablet Dexamethasone [Decadron] 4 mg PO DAILY #5 tablet HYDROcod/ACETAM 5/325 [[place] 5/325] 1 tab PO Q6H PRN #15 tablet PRN Reason: Pain Comments: Drink lots of fluids. Use Tylenol if needed for mild pains. Add hydrocodone if needed for worse pain and also can act as a cough suppressant. Decadron steroid anti-inflammatory daily for 5 days to decrease inflammation and pain. Cetirizine antihistamine for 1-2 weeks. Amoxicillin 3 times a day for a week for the ear infections. The rest is likely viral head cold and should taper down with the above medications. Discharge Date/Time: 01/31/18 20:20
[2018-01-31] MEDS ORDERED: HYDROcod/ACETAM 5/325 MG TABLET PO STA (20:09)
[2018-01-31] MEDS ORDERED: DEXAMETHASONE 10 MG/ML VIAL PO STA (20:09)
[2018-01-31] MEDS ORDERED: CETIRIZINE 10 MG TABLET PO STA (20:09)
[2018-01-31] MEDS ORDERED: AMOXICILLIN 250 MG CAPSULE PO STA (20:09)
[2018-01-31 20:24] VITALS: BP 118/75
== END 2018-01-31 20:20 | disposition home or self-care (01) ==
LOC: ED 18:00
DX: H66.003 Acute suppurative otitis media without spontaneous rupture of ear drum, bilateral (principal); J06.9 Acute upper respiratory infection, unspecified; J45.909 Unspecified asthma, uncomplicated; Z87.891 Personal history of nicotine dependence
CPT/HCPCS: 99283; A9270

== ENCOUNTER 2018-02-07 18:10 | Emergency (ER) | payer MEDICAID ==
[2018-02-07 18:52] VITALS: BP 120/76
--- NOTE | 2018-02-07 21:50 | ED Physician Documentation ---
PD HPI URI - Stated complaint Stated Complaint: EAR/NECK PX - Chief complaint Chief Complaint: Heent - History obtained from History obtained from: Patient - History of Present Illness Timing - onset: How many weeks ago (1-2) Timing duration: Weeks Timing details: Gradual onset, Still present Associated symptoms: Ear pain (more on the right.), Nasal congestion, Sinus pain , Sore throat (in mornings), Swollen nodes. No: Fever, Productive cough Contributing factors: No: Sick contact Similar symptoms before: No diagnosis Review of Systems Constitutional: denies: Fever, Chills Nose: reports: Rhinorrhea / runny nose, Congestion, Sinus pressure / pain Throat: reports: Sore throat (in mornings). denies: Dental pain / toothache, Oral lesions / sores Respiratory: denies: Dyspnea, Cough GI: denies: Vomiting, Diarrhea Skin: denies: Rash PD PAST MEDICAL HISTORY - Past Medical History Past Medical History: Yes Cardiovascular: None Respiratory: Asthma Endocrine/Autoimmune: None GI: None Psych: Anxiety, Post traumatic stress disorder - Past Surgical History Past Surgical History: Yes HEENT: Tonsil/Adenoidectomy - Present Medications Home Medications: Ambulatory Orders Medication Instructions Recorded Confirmed Beclomethasone 80 Mcg [Qvar 80] 11/23/17 Amoxicillin 500 mg PO TID #20 capsule 01/31/18 Cetirizine [ZyrTEC] 10 mg PO DAILY #15 tablet 01/31/18 Dexamethasone [Decadron] 4 mg PO DAILY #5 tablet 01/31/18 HYDROcod/ACETAM 5/325 [[place] 5/325] 1 tab PO Q6H PRN #15 tablet 01/31/18 Dexamethasone [Decadron] 4 mg PO DAILY #5 tablet 02/07/18 Doxycycline Monohydrate 100 mg PO BID #14 tablet 02/07/18 HYDROcod/ACETAM 5/325 [[place] 5/325] 1 tab PO Q6H PRN #15 tablet 02/07/18 - Allergies Allergies/Adverse Reactions: Allergies Allergy/AdvReac Type Severity Reaction Status Date / Time NSAIDS (Non-Steroidal Allergy Anaphylaxis Verified 07/03/17 19:07 Anti-Inflamma ketorolac tromethamine * AdvReac Emesis Verified 07/03/17 20:17 [From Toradol] - Social History Does the pt smoke?: No Smoking Status: Never smoker Does the pt drink ETOH?: Yes Does the pt have substance abuse?: Yes - Immunizations Immunizations are current?: No Immunizations: Other immun not current - POLST Patient has POLST: No PD ED PE NORMAL - Vitals Vital signs reviewed: Yes - General General: Alert and oriented X 3, No acute distress, Well developed/nourished - HEENT HEENT: Ears normal, Moist mucous membranes, Pharynx benign, Other (sinus tenderness to percussion frontal and maxillary) - Neck Neck: Supple, no meningeal sign, Other (mild anterior adenopathy) - Cardiac Cardiac: RRR, No murmur - Respiratory Respiratory: Clear bilaterally - Abdomen Abdomen: Soft - Derm Derm: Normal color, Warm and dry, No rash - Neuro Neuro: Alert and oriented X 3, No motor deficit, Normal speech Results - Vitals Vitals: Oxygen O2 Source Room air PD MEDICAL DECISION MAKING - ED course Complexity details: considered differential, d/w patient Departure - Departure Disposition: 01 Home, Self Care Clinical Impression: Sinusitis Qualifiers: Sinusitis location: unspecified location Chronicity: acute Recurrence: non- recurrent Qualified Code(s): J01.90 - Acute sinusitis, unspecified Condition: Stable Record reviewed to determine appropriate education?: Yes Instructions: ED Sinusitis Abx Tx Prescriptions: Dexamethasone [Decadron] 4 mg PO DAILY #5 tablet Doxycycline Monohydrate 100 mg PO BID #14 tablet HYDROcod/ACETAM 5/325 [[place] 5/325] 1 tab PO Q6H PRN #15 tablet PRN Reason: Pain Comments: Your eardrum is just a little bit red at this point. I looked back at the records from last week and sorry I did not remember it right off hand but I do recall now from the description that had been very red and quite distended/ pressured. So it does look like it is improving in appearance. The infection may be more settled in the sinuses and so not as visible per se. We can try a different antibiotic and continue with some pain medicine and I would actually continue with the steroids a little bit longer as well. Recheck if still not improving over the next several days or so. Discharge Date/Time: 02/07/18 22:11
[2018-02-07] MEDS ORDERED: DOXYCYCLINE 100 MG TABLET PO STA (22:02)
[2018-02-07] MEDS ORDERED: DEXAMETHASONE 10 MG/ML VIAL PO STA (22:02)
[2018-02-07] MEDS ORDERED: HYDROcod/ACETAM 5/325 MG TABLET PO STA (22:02)
== END 2018-02-07 22:11 | disposition home or self-care (01) ==
LOC: ED 18:10
DX: J01.90 Acute sinusitis, unspecified (principal)
CPT/HCPCS: 99283; A9270

== ENCOUNTER 2018-05-01 19:31 | Emergency (ER) | payer MEDICAID ==
[2018-05-01 19:51] VITALS: BP 122/77
[2018-05-01] MEDS ORDERED: diphenhydrAMINE 25 MG CAPSULE PO STA (20:06)
--- NOTE | 2018-05-01 20:21 | ED Physician Documentation ---
PD HPI SKIN - Stated complaint Stated Complaint: R LEG SWELLING/BEE STING - Chief complaint Chief Complaint: General - History obtained from History obtained from: Patient - History of Present Illness Timing - onset: How many days ago (3) Timing - details: Abrupt onset, Still present Location: RLE Quality / character: Itchy, Painful Contributing factors: Insect bite /sting Similar symptoms before: No diagnosis Recently seen: Not recently seen - Additional information Additional information: Patient is a 23 year old female with no significant past medical history who is presenting to the emergency department for rash on her right ankle. patient was stung by an insect three days ago and it is not getting better so she came to the emergency department for evaluation. Review of Systems Ten Systems: 10 systems reviewed and negative Respiratory: denies: Dyspnea, Cough, Wheezing Skin: reports: Rash, Lesions Musculoskeletal: reports: Extremity pain PD PAST MEDICAL HISTORY - Past Medical History Past Medical History: Yes Cardiovascular: None Respiratory: Asthma Endocrine/Autoimmune: None GI: None Psych: Anxiety, Post traumatic stress disorder - Past Surgical History Past Surgical History: Yes HEENT: Tonsil/Adenoidectomy - Present Medications Home Medications: Ambulatory Orders Medication Instructions Recorded Confirmed Beclomethasone 80 Mcg [Qvar 80] 11/23/17 Amoxicillin 500 mg PO TID #20 capsule 01/31/18 Cetirizine [ZyrTEC] 10 mg PO DAILY #15 tablet 01/31/18 Dexamethasone [Decadron] 4 mg PO DAILY #5 tablet 01/31/18 HYDROcod/ACETAM 5/325 [[place] 5/325] 1 tab PO Q6H PRN #15 tablet 01/31/18 Dexamethasone [Decadron] 4 mg PO DAILY #5 tablet 02/07/18 Doxycycline Monohydrate 100 mg PO BID #14 tablet 02/07/18 HYDROcod/ACETAM 5/325 [[place] 5/325] 1 tab PO Q6H PRN #15 tablet 02/07/18 Cephalexin [Keflex] 500 mg PO Q6H 7 Days capsule 05/01/18 - Allergies Allergies/Adverse Reactions: Allergies Allergy/AdvReac Type Severity Reaction Status Date / Time NSAIDS (Non-Steroidal Allergy Anaphylaxis Verified 05/01/18 19:45 Anti-Inflamma ketorolac tromethamine * AdvReac Emesis Verified 05/01/18 19:45 [From Toradol] - Social History Does the pt smoke?: No Smoking Status: Never smoker Does the pt drink ETOH?: Yes Does the pt have substance abuse?: Yes - Immunizations Immunizations are current?: Yes Immunizations: Other immun not current - POLST Patient has POLST: No PD ED PE NORMAL - Vitals Vital signs reviewed: Yes - General General: Alert and oriented X 3, No acute distress - HEENT HEENT: Atraumatic - Cardiac Cardiac: RRR - Respiratory Respiratory: No respiratory distress, Clear bilaterally - Abdomen Abdomen: Non distended - Neuro Eye Opening: Spontaneous PD ED PE EXPANDED - Respiratory Respiratory: No: Wheezing - Extremities Feet visual: 1 - rash (consistent with uticaria) Results - Vitals Vitals: Vital Signs - 24 hr 05/01/18 19:42 Temperature 36.3 C L Heart Rate 92 Respiratory 16 Rate Blood Pressure 122/77 O2 Saturation 98 Oxygen O2 Source Room air PD MEDICAL DECISION MAKING - ED course Complexity details: reviewed old records, reviewed results, re-evaluated patient , considered differential, d/w patient ED course: Patient was seen and examined at bedside. Patient was well appearing and in no distress. patient was treated with benadryl and the area was outlined. Prescriptions were written in case a superimposed infection developed. Patient required no further work up at this time and was stable for discharge with outpatient follow up. - Sepsis Event Vital Signs: Vital Signs - 24 hr 05/01/18 19:42 Temperature 36.3 C L Heart Rate 92 Respiratory 16 Rate Blood Pressure 122/77 O2 Saturation 98 Oxygen O2 Source Room air Departure - Departure Disposition: 01 Home, Self Care Clinical Impression: Insect sting Condition: Good Instructions: Bites Stings Insect Follow-Up: Carrie Salmon ARNP [Primary Care Provider] - As Needed Prescriptions: Cephalexin [Keflex] 500 mg PO Q6H 7 Days capsule Comments: Your symptoms today are likely secondary to an insect sting. you will need to ice it and use benadryl every 6 hours. The areas has been outlines and if it spreads and gets more painful you can start the antibiotics. Otherwise, with treatment it should get better in the next few days. You can follow up with your doctor if symptoms persist. You may return to the emergency department at any time for new, worsening or uncontrollable symptoms.
== END 2018-05-01 20:34 | disposition home or self-care (01) ==
LOC: ED 19:31
DX: S90.561A Insect bite (nonvenomous), right ankle, initial encounter (principal); W57.XXXA Bitten or stung by nonvenomous insect and other nonvenomous arthropods, initial encounter
CPT/HCPCS: 99283; A9270

== ENCOUNTER 2018-05-16 21:53 | Emergency (ER) | payer MEDICAID ==
[2018-05-16 22:05] VITALS: BP 117/78
--- NOTE | 2018-05-16 22:47 | ED Physician Documentation ---
PD HPI HEENT - Stated complaint Stated Complaint: JAW PX - Chief complaint Chief Complaint: General - History obtained from History obtained from: Patient - History of Present Illness Timing - onset: How many days ago (several days to weeks of pain right lower tooth, cold sensitive and with chewing, but worse the past few days and with some swelling of the gum. Does not have dental coverage and says she can't afford a dentist.) Timing - details: Gradual onset, Waxing and waning Location: Tooth (right lower molar) Improves: No: Medication Worsens: Swalllowing, Temperatures, Other (chewing) Associated symptoms: No: Fever, Congestion, Facial swelling Similar symptoms before: Diagnosis (dental infections) Review of Systems Constitutional: denies: Fever Nose: denies: Rhinorrhea / runny nose, Congestion Throat: reports: Dental pain / toothache. denies: Sore throat Cardiac: denies: Chest pain / pressure Respiratory: denies: Cough Skin: denies: Rash, Lesions PD PAST MEDICAL HISTORY - Past Medical History Past Medical History: Yes Cardiovascular: None Respiratory: Asthma Endocrine/Autoimmune: None GI: None Psych: Anxiety, Post traumatic stress disorder - Past Surgical History Past Surgical History: Yes HEENT: Tonsil/Adenoidectomy - Present Medications Home Medications: Ambulatory Orders Medication Instructions Recorded Confirmed Beclomethasone 80 Mcg [Qvar 80] 1 puffs INH DAILY 11/23/17 Cetirizine [ZyrTEC] 10 mg PO DAILY #15 tablet 01/31/18 Albuterol 1 puffs INH BID 05/16/18 05/16/18 Clindamycin HCl [Cleocin HCl] 300 mg PO TID #20 capsule 05/16/18 HYDROcod/ACETAM 5/325 [[place] 5/325] 1 tab PO Q6H PRN #15 tablet 05/16/18 Naproxen 375 mg PO BID #20 tablet 05/16/18 Sertraline HCl [Zoloft] 200 mg PO DAILY 05/16/18 05/16/18 - Allergies Allergies/Adverse Reactions: Allergies Allergy/AdvReac Type Severity Reaction Status Date / Time NSAIDS (Non-Steroidal Allergy Anaphylaxis Verified 05/16/18 22:05 Anti-Inflamma ketorolac tromethamine * AdvReac Emesis Verified 05/16/18 22:05 [From Toradol] - Social History Does the pt smoke?: No Smoking Status: Never smoker Does the pt drink ETOH?: Yes Does the pt have substance abuse?: Yes - Immunizations Immunizations are current?: Yes Immunizations: Other immun not current - POLST Patient has POLST: No PD ED PE NORMAL - Vitals Vital signs reviewed: Yes - General General: Alert and oriented X 3, Well developed/nourished - HEENT HEENT: Moist mucous membranes, Pharynx benign, Dentition benign (not significant caries seen. There is tenderness to palpation right lower 2nd molar and some swelling of gum there. No fluctuance. No adenopathy. ) - Neck Neck: Supple, no meningeal sign, No adenopathy - Cardiac Cardiac: RRR, No murmur - Respiratory Respiratory: Clear bilaterally - Derm Derm: Normal color, Warm and dry, No rash - Neuro Neuro: Alert and oriented X 3, No motor deficit, Normal speech Results - Vitals Vitals: Oxygen O2 Source Room air PD MEDICAL DECISION MAKING - ED course Complexity details: considered differential (dental pain without significant caries, and has swelling of gum in that area c/w infection. She doesn't have dental coverage and says unable to afford dentist. ), d/w patient - Sepsis Event Vital Signs: Oxygen O2 Source Room air Departure - Departure Disposition: 01 Home, Self Care Clinical Impression: Pain, dental Condition: Stable Record reviewed to determine appropriate education?: Yes Instructions: ED Tooth Pain Follow-Up: Carrie Salmon ARNP [Primary Care Provider] - [facility] [Provider Group] Prescriptions: Clindamycin HCl [Cleocin HCl] 300 mg PO TID #20 capsule HYDROcod/ACETAM 5/325 [[place] 5/325] 1 tab PO Q6H PRN #15 tablet PRN Reason: Pain Naproxen 375 mg PO BID #20 tablet Comments: Clindamycin 3 times a day for a week for apparent dental infection. Naproxen twice daily for anti-inflammatory effect. Add Tylenol or hydrocodone if needed for pain. He can see if the [facility] clinic except your insurance. They have a dental clinic in [place]. Otherwise following up with a dentist will be the definitive way to take care of the tooth pain. Getting rid of the infection will improve it for now but the tooth ultimately needs repair. Discharge Date/Time: 05/16/18 23:08
[2018-05-16] MEDS ORDERED: CLINDAMYCIN 150 MG CAPSULE PO STA (22:58)
[2018-05-16] MEDS ORDERED: HYDROcod/ACETAM 5/325 MG TABLET PO STA (22:58)
== END 2018-05-16 23:08 | disposition home or self-care (01) ==
LOC: ED 21:53
DX: K08.89 Other specified disorders of teeth and supporting structures (principal)
CPT/HCPCS: 99283; A9270

== ENCOUNTER 2018-05-24 18:43 | Emergency (ER) | payer MEDICAID ==
[2018-05-24 19:25] LABS: BILIRUBIN,URINE NEGATIVE (NEGATIVE); GLUCOSE, URINE (UA) NEGATIVE (NEGATIVE); KETONES,URINE (UA) NEGATIVE (NEGATIVE); LEUKOCYTE ESTERASE, URINE SMALL (NEGATIVE); NITRITE,URINE NEGATIVE (NEGATIVE); OCCULT BLOOD,URINE NEGATIVE (NEGATIVE); PROTEIN,URINE NEGATIVE (NEGATIVE); UROBILINOGEN,URINE 0.2 (NORMAL) E.U./dL (NORMAL)
[2018-05-24 19:27] LABS: CLARITY,URINE HAZY (CLEAR)
[2018-05-24 19:28] LABS: HCG UR QUAL NEGATIVE
[2018-05-24 19:41] LABS: BACTERIA,URINE Rare /HPF (None Seen); RBC,URINE 0-5 /HPF (0-5); SQUAMOUS EPITHELIAL CELL,UR FEW Squamous (<= Few)
[2018-05-24] MEDS ORDERED: cefTRIAXone 1 GM VIAL IM STA (21:31)
[2018-05-24] MEDS ORDERED: LIDOCAINE 1% 2 ML VIAL SUBQ ONE (21:31)
[2018-05-24] MEDS ORDERED: ONDANSETRON ODT 4 MG TABLET TL STA (21:31)
--- NOTE | 2018-05-24 21:42 | ED Physician Documentation ---
PD HPI FEMALE - Stated complaint Stated Complaint: VOMITING/ABD PX/FEM - Chief complaint Chief Complaint: UTI - History obtained from History obtained from: Patient, Family - History of Present Illness Timing - onset: How many weeks ago (1) Timing - duration: Weeks (1) Timing - details: Gradual onset, Still present Associated symptoms: Abdominal pain, Dysuria, Urinary frequency Contributing factors: No: Similar symptoms before: Diagnosis (UTI) Recently seen: Emergency Dept - Additional information Additional information: Previously healthy 23-year-old female was seen in the emergency department 1 week ago placed on some clindamycin for a tooth abscess and this improved. She has separately over this past week developed urinary urgency frequency and dysuria she has now developed some left flank pain chills and nausea with vomiting. Review of Systems Constitutional: reports: Chills, Fatigue, Sweats. denies: Fever Eyes: denies: Decreased vision Ears: denies: Ear pain Nose: denies: Congestion Throat: denies: Sore throat Cardiac: denies: Chest pain / pressure, Palpitations Respiratory: denies: Dyspnea, Cough GI: reports: Abdominal Pain, Nausea, Vomiting. denies: Constipation, Diarrhea : reports: Dysuria, Frequency Skin: denies: Rash Musculoskeletal: reports: Back pain. denies: Neck pain Neurologic: denies: Generalized weakness, Focal weakness, Numbness PD PAST MEDICAL HISTORY - Past Medical History Cardiovascular: None Respiratory: Asthma Endocrine/Autoimmune: None GI: None Psych: Anxiety, Post traumatic stress disorder - Past Surgical History Past Surgical History: Yes HEENT: Tonsil/Adenoidectomy - Present Medications Home Medications: Ambulatory Orders Medication Instructions Recorded Confirmed Beclomethasone 80 Mcg [Qvar 80] 1 puffs INH DAILY 11/23/17 Cetirizine [ZyrTEC] 10 mg PO DAILY #15 tablet 01/31/18 Albuterol 1 puffs INH BID 05/16/18 05/16/18 HYDROcod/ACETAM 5/325 [[place] 5/325] 1 tab PO Q6H PRN #15 tablet 05/16/18 Naproxen 375 mg PO BID #20 tablet 05/16/18 Sertraline HCl [Zoloft] 200 mg PO DAILY 05/16/18 05/16/18 HYDROcod/ACETAM 5/325 [[place] 5/325] 1 - 2 ea PO Q6H PRN #15 tablet 05/24/18 Ondansetron Odt [Zofran] 4 mg TL Q6H PRN #10 tablet 05/24/18 Sulfamethoxazole/Trimethoprim 1 each PO BID #14 tablet 05/24/18 [Sulfamethoxazole-Tmp Ds Tablet] - Allergies Allergies/Adverse Reactions: Allergies Allergy/AdvReac Type Severity Reaction Status Date / Time NSAIDS (Non-Steroidal Allergy Anaphylaxis Verified 05/16/18 22:05 Anti-Inflamma ketorolac tromethamine * AdvReac Emesis Verified 05/16/18 22:05 [From Toradol] - Social History Does the pt smoke?: No Smoking Status: Never smoker Does the pt drink ETOH?: Yes Does the pt have substance abuse?: Yes - Immunizations Immunizations are current?: Yes Immunizations: Other immun not current - POLST Patient has POLST: No PD ED PE NORMAL - Vitals Vital signs reviewed: Yes (normal ) - General General: Alert and oriented X 3, No acute distress, Well developed/nourished - HEENT HEENT: Atraumatic, PERRL, EOMI - Neck Neck: Supple, no meningeal sign - Cardiac Cardiac: RRR, No murmur - Respiratory Respiratory: No respiratory distress, Clear bilaterally - Abdomen Abdomen: Soft, Non tender - Back Back: No spinal TTP, Other (left CVA tenderness is mild ) - Derm Derm: Normal color, Warm and dry, No rash - Extremities Extremities: No deformity, No edema - Neuro Neuro: Alert and oriented X 3, chief of staff doctor 2-12 intact, No motor deficit, No sensory deficit, Normal speech Eye Opening: Spontaneous Motor: Obeys Commands Verbal: Oriented GCS Score: 15 - Psych Psych: Normal mood, Normal affect Results - Vitals Vitals: Vital Signs - 24 hr 05/24/18 18:56 Temperature 36.7 C Heart Rate 68 Respiratory 16 Rate Blood Pressure 108/68 O2 Saturation 97 Oxygen O2 Source Room air - Labs Labs: Laboratory Tests 05/24/18 19:22 Urine Color YELLOW Urine Clarity HAZY Urine pH 6.0 Ur Specific [place] >=1.030 H Urine Protein NEGATIVE Urine Glucose (UA) NEGATIVE Urine Ketones NEGATIVE Urine Occult Blood NEGATIVE Urine Nitrite NEGATIVE Urine Bilirubin NEGATIVE Urine Urobilinogen 0.2 (NORMAL) Ur Leukocyte Esterase SMALL H Urine RBC 0-5 Urine WBC 11-25 H Ur Squamous Epith Cells FEW Squamous Urine Bacteria Rare Ur Microscopic Review INDICATED Urine Culture Comments INDICATED Urine HCG, Qual NEGATIVE PD MEDICAL DECISION MAKING - ED course Complexity details: reviewed old records, reviewed results, re-evaluated patient , considered differential, d/w patient, d/w family ED course: 23-year-old previously healthy female with acute pyelonephritis has some left upper quadrant pain and white cells in her urine. She has a normal heart rate and does not appear overtly dehydrated. She is administered Rocephin 1 g IM and we will administer some Zofran as well. - Sepsis Event Vital Signs: Vital Signs - 24 hr 05/24/18 18:56 Temperature 36.7 C Heart Rate 68 Respiratory 16 Rate Blood Pressure 108/68 O2 Saturation 97 Oxygen O2 Source Room air Departure - Departure Disposition: 01 Home, Self Care Clinical Impression: Pyelonephritis Instructions: ED Kidney Infec Female Follow-Up: Carrie Salmon ARNP [Primary Care Provider] - Prescriptions: HYDROcod/ACETAM 5/325 [[place] 5/325] 1 - 2 ea PO Q6H PRN #15 tablet PRN Reason: Pain Ondansetron Odt [Zofran] 4 mg TL Q6H PRN #10 tablet PRN Reason: Nausea / Vomiting Sulfamethoxazole/Trimethoprim [Sulfamethoxazole-Tmp Ds Tablet] 1 each PO BID # 14 tablet
[2018-05-24] MEDS ORDERED: ONDANSETRON ODT 4 MG Prepack 2 TL PRN (21:43)
[2018-05-24] MEDS ORDERED: HYDROcod/ACET 5/325 Prepack 4 PO STA (21:47)
[2018-05-24 22:09] VITALS: BP 114/62
== END 2018-05-24 22:13 | disposition home or self-care (01) ==
LOC: ED 18:43
DX: N12 Tubulo-interstitial nephritis, not specified as acute or chronic (principal)
CPT/HCPCS: 81001; 81025; 87086; 96372; 99283; Q0162; 81003

== ENCOUNTER 2018-06-14 11:18 | Emergency (ER) | payer OTHER, MEDICAID ==
[2018-06-14 11:35] VITALS: BP 110/74
[2018-06-14] MEDS ORDERED: SILVER SULFADIAZINE CREAM 25 GM TUBE TOP STA (12:44)
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
[2018-06-14] MEDS ORDERED: ACETAMINOPHEN 500 MG TABLET PO STA (12:48)
== END 2018-06-14 12:52 | disposition home or self-care (01) ==
LOC: ED 11:18
DX: T23.262A Burn of second degree of back of left hand, initial encounter (principal); X17.XXXA Contact with hot engines, machinery and tools, initial encounter; Y93.G1 Activity, food preparation and clean up; Y92.511 Restaurant or cafe as the place of occurrence of the external cause; Y99.0 Civilian activity done for income or pay
CPT/HCPCS: 1040M; 99281; 99283; A9270

== ENCOUNTER 2018-06-15 20:18 | Emergency (ER) | payer MEDICAID ==
[2018-06-15] MEDS ORDERED: SODIUM CHLORIDE 0.9% 1,000 ML IV ONE (21:31)
[2018-06-15] MEDS ORDERED: PROCHLORPERAZINE 10 MG/2 ML VIAL IVP STA (21:31)
[2018-06-15] MEDS ORDERED: diphenhydrAMINE INJ 50 MG/ML VIAL IVP STA (21:31)
--- NOTE | 2018-06-15 21:32 | ED Physician Documentation ---
PD HPI NVD - Stated complaint Stated Complaint: N/V/FEVER - Chief complaint Chief Complaint: Abd Pain - History obtained from History obtained from: Patient, Friend - History of Present Illness Timing - onset: Today (Became nauseous around 4 AM with several episodes of vomiting. No diarrhea and she notes decreased urine output. About 10 hours later developed gradual onset headache that is throbbing across the top. She was subjectively febrile but there was no measured fever. She denies diarrhea or sick contacts or recent travel.) Review of Systems Constitutional: reports: Fever, Chills, Fatigue Throat: denies: Sore throat GI: reports: Nausea, Vomiting. denies: Abdominal Pain, Diarrhea : denies: Dysuria, Frequency PD PAST MEDICAL HISTORY - Past Medical History Cardiovascular: None Respiratory: Asthma Endocrine/Autoimmune: None GI: None Psych: Anxiety, Post traumatic stress disorder - Past Surgical History Past Surgical History: Yes HEENT: Tonsil/Adenoidectomy - Present Medications Home Medications: Ambulatory Orders Medication Instructions Recorded Confirmed Sertraline HCl [Zoloft] 200 mg PO DAILY 05/16/18 06/14/18 Silver Sulfadiazine [Silvadene] 1 gm TP BID #20 cream..g. 06/14/18 Ondansetron HCl [Zofran] 4 mg PO Q6H PRN #10 tablet 06/15/18 - Allergies Allergies/Adverse Reactions: Allergies Allergy/AdvReac Type Severity Reaction Status Date / Time NSAIDS (Non-Steroidal Allergy Anaphylaxis Verified 06/15/18 20:27 Anti-Inflamma ketorolac tromethamine * AdvReac Emesis Verified 06/15/18 20:27 [From Toradol] - Social History Does the pt smoke?: No Smoking Status: Never smoker Does the pt drink ETOH?: Yes Does the pt have substance abuse?: Yes - Immunizations Immunizations are current?: Yes Immunizations: Other immun not current - POLST Patient has POLST: No PD ED PE NORMAL - Vitals Vital signs reviewed: Yes - General General: Alert and oriented X 3, No acute distress - HEENT HEENT: PERRL, EOMI, Pharynx benign - Neck Neck: Supple, no meningeal sign, No bony TTP - Cardiac Cardiac: RRR, No murmur - Respiratory Respiratory: No respiratory distress, Clear bilaterally - Abdomen Abdomen: Normal bowel sounds, Soft, Non tender - Neuro Neuro: Alert and oriented X 3, Normal speech Results - Vitals Vitals: Vital Signs - 24 hr 06/15/18 06/15/18 20:24 20:40 Temperature 36.6 C 36.9 C Heart Rate 63 Respiratory 16 Rate Blood Pressure 117/77 O2 Saturation 97 Oxygen O2 Source Room air - Labs Labs: Laboratory Tests 06/15/18 06/15/18 06/15/18 21:53 21:53 22:03 WBC 7.4 RBC 4.56 Hgb 14.2 Hct 41.6 MCV 91.1 MCH 31.2 H MCHC 34.3 RDW 13.0 Plt Count 316 MPV 7.8 L Neut # (Auto) 4.0 Lymph # (Auto) 2.7 [place] # (Auto) 0.6 Eos # (Auto) 0.1 Baso # (Auto) 0.0 Absolute Nucleated RBC 0.00 Nucleated RBC % 0.0 Sodium 137 Potassium 3.3 L Chloride 107 Carbon Dioxide 24 Anion Gap 6.0 BUN 9 Creatinine 0.5 Estimated GFR (MDRD) 152 Glucose 101 H Calcium 10.2 Total Bilirubin 0.9 AST 23 ALT 21 Alkaline Phosphatase 43 Total Protein 7.4 Albumin 4.4 Globulin 3.0 Albumin/Globulin Ratio 1.5 Lipase 66 H Urine Color Urine Clarity Urine pH Ur Specific [place] Urine Protein Urine Glucose (UA) Urine Ketones Urine Occult Blood Urine Nitrite Urine Bilirubin Urine Urobilinogen Ur Leukocyte Esterase Ur Microscopic Review Urine Culture Comments Urine HCG, Qual Urine Opiates Screen NEGATIVE Ur Oxycodone Screen NEGATIVE Urine Methadone Screen NEGATIVE Ur Propoxyphene Screen NEGATIVE Ur Barbiturates Screen NEGATIVE Ur Tricyclics Screen NEGATIVE Ur Phencyclidine Scrn NEGATIVE Ur Amphetamine Screen NEGATIVE U Methamphetamines Scrn NEGATIVE U Benzodiazepines Scrn NEGATIVE Urine Cocaine Screen NEGATIVE U Cannabinoids Screen POSITIVE H 06/15/18 22:03 WBC RBC Hgb Hct MCV MCH MCHC RDW Plt Count MPV Neut # (Auto) Lymph # (Auto) [place] # (Auto) Eos # (Auto) Baso # (Auto) Absolute Nucleated RBC Nucleated RBC % Sodium Potassium Chloride Carbon Dioxide Anion Gap BUN Creatinine Estimated GFR (MDRD) Glucose Calcium Total Bilirubin AST ALT Alkaline Phosphatase Total Protein Albumin Globulin Albumin/Globulin Ratio Lipase Urine Color YELLOW Urine Clarity CLEAR Urine pH 6.0 Ur Specific [place] 1.025 Urine Protein NEGATIVE Urine Glucose (UA) NEGATIVE Urine Ketones NEGATIVE Urine Occult Blood NEGATIVE Urine Nitrite NEGATIVE Urine Bilirubin NEGATIVE Urine Urobilinogen 0.2 (NORMAL) Ur Leukocyte Esterase NEGATIVE Ur Microscopic Review NOT INDICATED Urine Culture Comments NOT INDICATED Urine HCG, Qual NEGATIVE Urine Opiates Screen Ur Oxycodone Screen Urine Methadone Screen Ur Propoxyphene Screen Ur Barbiturates Screen Ur Tricyclics Screen Ur Phencyclidine Scrn Ur Amphetamine Screen U Methamphetamines Scrn U Benzodiazepines Scrn Urine Cocaine Screen U Cannabinoids Screen PD MEDICAL DECISION MAKING - ED course ED course: 23-year-old with vomiting today that significantly preceded a gradual onset headache. It was easy to control her symptoms with IV fluids, Compazine, Benadryl, and Tylenol. Potassium borderline low and repleted orally. Otherwise benign labs. Eager for discharge. - Sepsis Event Vital Signs: Vital Signs - 24 hr 06/15/18 06/15/18 20:24 20:40 Temperature 36.6 C 36.9 C Heart Rate 63 Respiratory 16 Rate Blood Pressure 117/77 O2 Saturation 97 Oxygen O2 Source Room air Departure - Departure Disposition: 01 Home, Self Care Clinical Impression: Vomiting, Dehydration Condition: Good Record reviewed to determine appropriate education?: Yes Instructions: ED Nausea Vomiting Prescriptions: Ondansetron HCl [Zofran] 4 mg PO Q6H PRN #10 tablet PRN Reason: Nausea / Vomiting Comments: Call your doctor to arrange a follow-up appointment, make the next available appointment. In the interim, return anytime if worse or if new symptoms develop.
[2018-06-15] MEDS ORDERED: ACETAMINOPHEN 325 MG TABLET PO STA (21:53)
[2018-06-15 21:57] LABS: BASOPHILS % (AUTO) 0.3 %; EOSINOPHILS # (AUTO) 0.1 10^3/uL (0.0-0.7); EOSINOPHILS % (AUTO) 0.7 %; HGB - HEMOGLOBIN 14.2 g/dL (12.0-16.0); LYMPHOCYTES # (AUTO) 2.7 10^3/uL (1.5-3.5); MEAN CORPUSCULAR HEMOGLOBIN 31.2 pg (27.0-31.0); MEAN CORPUSCULAR HGB CONC 34.3 g/dL (32.0-36.0); MEAN CORPUSCULAR VOLUME 91.1 fL (81.0-99.0); MEAN PLATELET VOLUME 7.8 fL (7.9-10.8); MONOCYTES # (AUTO) 0.6 10^3/uL (0.0-1.0); MONOCYTES % (AUTO) 8.2 %; NEUTROPHILS % (AUTO) 53.8 %; PLT - PLATELET COUNT 316 10^3/uL (130-450); RED BLOOD COUNT 4.56 10^6/uL (4.20-5.40); WHITE BLOOD COUNT 7.4 x10^3/uL (4.8-10.8)
[2018-06-15 22:08] LABS: ALBUMIN 4.4 g/dL (3.2-5.5); ALBUMIN/GLOBULIN RATIO 1.5 (1.0-2.2); BILIRUBIN,TOTAL 0.9 mg/dL (0.2-1.0); CALCIUM 10.2 mg/dL (8.5-10.3); CREATININE 0.5 mg/dL (0.4-1.0); TOTAL PROTEIN 7.4 g/dL (6.7-8.2)
[2018-06-15 22:10] LABS: MUDS CUTOFF CONCENTRATIONS CUTOFF CONC BELOW:
[2018-06-15 22:13] LABS: BILIRUBIN,URINE NEGATIVE (NEGATIVE); GLUCOSE, URINE (UA) NEGATIVE (NEGATIVE); KETONES,URINE (UA) NEGATIVE (NEGATIVE); LEUKOCYTE ESTERASE, URINE NEGATIVE (NEGATIVE); NITRITE,URINE NEGATIVE (NEGATIVE); OCCULT BLOOD,URINE NEGATIVE (NEGATIVE); PROTEIN,URINE NEGATIVE (NEGATIVE); UROBILINOGEN,URINE 0.2 (NORMAL) E.U./dL (NORMAL)
[2018-06-15 22:19] LABS: CLARITY,URINE CLEAR (CLEAR); HCG UR QUAL NEGATIVE
[2018-06-15 22:22] LABS: AMPHETAMINE SCREEN,URINE NEGATIVE (NEGATIVE); BENZODIAZEPINES SCREEN, URINE NEGATIVE (NEGATIVE); COCAINE SCREEN URINE NEGATIVE (NEGATIVE); METHADONE SCREEN, URINE NEGATIVE (NEGATIVE); METHAMPHETAMINES SCREEN, URINE NEGATIVE (NEGATIVE); OPIATE SCREEN, URINE NEGATIVE (NEGATIVE); OXYCODONE SCREEN, URINE NEGATIVE (NEGATIVE); PROPOXYPHENE SCREEN, URINE NEGATIVE (NEGATIVE); TRICYCLIC ANTIDEPRESSANT,URINE NEGATIVE (NEGATIVE)
[2018-06-15] MEDS ORDERED: POTASSIUM CHLORIDE 20 MEQ TABLET PO STA (22:22)
[2018-06-15] MEDS ORDERED: ONDANSETRON ODT 4 MG Prepack 2 TL STA (22:26)
[2018-06-15 22:40] VITALS: BP 123/55
== END 2018-06-15 22:44 | disposition home or self-care (01) ==
LOC: ED 20:18
DX: E86.0 Dehydration (principal); R11.10 Vomiting, unspecified
CPT/HCPCS: 36415; 80053; 80306; 81003; 81025; 83690; 85025; 96374; 99283; A9270; J1200; 81001; 87086

== ENCOUNTER 2018-06-26 18:35 | Emergency (ER) | payer MEDICAID ==
[2018-06-26 19:01] LABS: BASOPHILS % (AUTO) 0.4 %; EOSINOPHILS # (AUTO) 0.1 10^3/uL (0.0-0.7); EOSINOPHILS % (AUTO) 0.7 %; HGB - HEMOGLOBIN 13.9 g/dL (12.0-16.0); LYMPHOCYTES # (AUTO) 2.3 10^3/uL (1.5-3.5); LYMPHOCYTES % (AUTO) 25.8 %; MEAN CORPUSCULAR HEMOGLOBIN 31.5 pg (27.0-31.0); MEAN CORPUSCULAR HGB CONC 34.8 g/dL (32.0-36.0); MEAN CORPUSCULAR VOLUME 90.6 fL (81.0-99.0); MEAN PLATELET VOLUME 8.1 fL (7.9-10.8); MONOCYTES # (AUTO) 0.6 10^3/uL (0.0-1.0); MONOCYTES % (AUTO) 6.4 %; NEUTROPHILS # (AUTO) 5.8 10^3/uL (1.5-6.6); NEUTROPHILS % (AUTO) 66.7 %; PLT - PLATELET COUNT 278 10^3/uL (130-450); RED BLOOD COUNT 4.42 10^6/uL (4.20-5.40); RED CELL DISTRIBUTION WIDTH 13.2 % (12.0-15.0); WHITE BLOOD COUNT 8.7 x10^3/uL (4.8-10.8)
[2018-06-26 19:12] LABS: ALBUMIN 4.3 g/dL (3.2-5.5); ALBUMIN/GLOBULIN RATIO 1.4 (1.0-2.2); BILIRUBIN,TOTAL 0.4 mg/dL (0.2-1.0); CALCIUM 10.6 mg/dL (8.5-10.3); CREATININE 0.5 mg/dL (0.4-1.0); TOTAL PROTEIN 7.3 g/dL (6.7-8.2)
[2018-06-26 19:16] LABS: BILIRUBIN,URINE NEGATIVE (NEGATIVE); GLUCOSE, URINE (UA) NEGATIVE (NEGATIVE); KETONES,URINE (UA) NEGATIVE (NEGATIVE); LEUKOCYTE ESTERASE, URINE NEGATIVE (NEGATIVE); NITRITE,URINE NEGATIVE (NEGATIVE); OCCULT BLOOD,URINE NEGATIVE (NEGATIVE); PH,URINE 5.5 PH (5.0-7.5); PROTEIN,URINE NEGATIVE (NEGATIVE); UROBILINOGEN,URINE 0.2 (NORMAL) E.U./dL (NORMAL)
[2018-06-26] MEDS ORDERED: METOCLOPRAMIDE 10 MG TABLET PO STA (19:16)
[2018-06-26 19:18] LABS: CLARITY,URINE CLEAR (CLEAR)
--- NOTE | 2018-06-26 19:21 | ED Physician Documentation ---
History of Present Illness - Stated complaint Stated Complaint: VOMITING/TIRED/SENT BY DOC - Chief complaint Chief Complaint: Abd Pain - History obtained from History obtained from: Patient, Family - History of Present Illness Timing: Today Pain level max: 0 Pain level now: 0 Improved by: nothing Worsened by: nothing - Additonal information Additional information: Patient is a 23-year-old female who states that she has had nausea for the past 2 weeks. Seen here for same and prescribe Zofran which she states is not helping. She states that she is a week late for her menses and took a home test which was positive. Her doctor sent her in for a blood test to confirm . She has no abdominal pain. No fevers. She states that she just feels tired. She is a 2 para 1 Review of Systems Constitutional: denies: Fever, Chills Respiratory: denies: Cough GI: reports: Nausea, Vomiting. denies: Abdominal Pain, Diarrhea : reports: Now EGA. denies: Dysuria, Frequency, Hesitancy Skin: denies: Rash Musculoskeletal: denies: Neck pain, Back pain Neurologic: denies: Headache PD PAST MEDICAL HISTORY - Past Medical History Cardiovascular: None Respiratory: Asthma Endocrine/Autoimmune: None GI: None Psych: Anxiety, Post traumatic stress disorder - Past Surgical History Past Surgical History: Yes HEENT: Tonsil/Adenoidectomy - Present Medications Home Medications: Ambulatory Orders Medication Instructions Recorded Confirmed Sertraline HCl [Zoloft] 200 mg PO DAILY 05/16/18 06/14/18 Silver Sulfadiazine [Silvadene] 1 gm TP BID #20 cream..g. 06/14/18 Ondansetron HCl [Zofran] 4 mg PO Q6H PRN #10 tablet 06/15/18 Metoclopramide [Reglan] 10 mg PO Q6H PRN #14 tablet 06/26/18 traZODone [Desyrel] 06/26/18 06/26/18 - Allergies Allergies/Adverse Reactions: Allergies Allergy/AdvReac Type Severity Reaction Status Date / Time NSAIDS (Non-Steroidal Allergy Anaphylaxis Verified 06/15/18 20:27 Anti-Inflamma ketorolac tromethamine * AdvReac Emesis Verified 06/26/18 18:45 [From Toradol] - Social History Does the pt smoke?: No Smoking Status: Never smoker Does the pt drink ETOH?: Yes Does the pt have substance abuse?: Yes - Immunizations Immunizations are current?: Yes Immunizations: Other immun not current - POLST Patient has POLST: No PD ED PE NORMAL - Vitals Vital signs reviewed: Yes - General General: Alert and oriented X 3, No acute distress - HEENT HEENT: Moist mucous membranes - Neck Neck: Supple, no meningeal sign - Cardiac Cardiac: RRR, Strong equal pulses - Respiratory Respiratory: No respiratory distress, Clear bilaterally - Abdomen Abdomen: Soft, Non tender, Non distended - Back Back: No CVA TTP, No spinal TTP - Derm Derm: Warm and dry - Extremities Extremities: No edema - Neuro Neuro: Alert and oriented X 3 Results - Vitals Vitals: Vital Signs - 24 hr 06/26/18 06/26/18 18:40 19:41 Temperature 36.2 C L 36.5 C Heart Rate 75 74 Respiratory 16 17 Rate Blood Pressure 123/74 111/84 H O2 Saturation 100 100 Oxygen O2 Source Room air - Labs Labs: Laboratory Tests 06/26/18 06/26/18 06/26/18 18:55 18:55 18:55 WBC 8.7 RBC 4.42 Hgb 13.9 Hct 40.0 MCV 90.6 MCH 31.5 H MCHC 34.8 RDW 13.2 Plt Count 278 MPV 8.1 Neut # (Auto) 5.8 Lymph # (Auto) 2.3 [place] # (Auto) 0.6 Eos # (Auto) 0.1 Baso # (Auto) 0.0 Absolute Nucleated RBC 0.00 Nucleated RBC % 0.0 Sodium 136 Potassium 3.8 Chloride 104 Carbon Dioxide 24 Anion Gap 8.0 BUN 12 Creatinine 0.5 Estimated GFR (MDRD) 152 Glucose 100 Calcium 10.6 H Total Bilirubin 0.4 AST 27 ALT 25 Alkaline Phosphatase 39 L Total Protein 7.3 Albumin 4.3 Globulin 3.0 Albumin/Globulin Ratio 1.4 Lipase 43 HCG, Quant 19.33 Urine Color Urine Clarity Urine pH Ur Specific [place] Urine Protein Urine Glucose (UA) Urine Ketones Urine Occult Blood Urine Nitrite Urine Bilirubin Urine Urobilinogen Ur Leukocyte Esterase Ur Microscopic Review Urine Culture Comments 06/26/18 19:10 WBC RBC Hgb Hct MCV MCH MCHC RDW Plt Count MPV Neut # (Auto) Lymph # (Auto) [place] # (Auto) Eos # (Auto) Baso # (Auto) Absolute Nucleated RBC Nucleated RBC % Sodium Potassium Chloride Carbon Dioxide Anion Gap BUN Creatinine Estimated GFR (MDRD) Glucose Calcium Total Bilirubin AST ALT Alkaline Phosphatase Total Protein Albumin Globulin Albumin/Globulin Ratio Lipase HCG, Quant Urine Color YELLOW Urine Clarity CLEAR Urine pH 5.5 Ur Specific [place] <=1.005 Urine Protein NEGATIVE Urine Glucose (UA) NEGATIVE Urine Ketones NEGATIVE Urine Occult Blood NEGATIVE Urine Nitrite NEGATIVE Urine Bilirubin NEGATIVE Urine Urobilinogen 0.2 (NORMAL) Ur Leukocyte Esterase NEGATIVE Ur Microscopic Review NOT INDICATED Urine Culture Comments NOT INDICATED PD MEDICAL DECISION MAKING - ED course Complexity details: reviewed old records (Prior ED visit), reviewed results, re- evaluated patient, considered differential, d/w patient ED course: Patient is a 23-year-old female who presents to the emergency department with a very early positive test. HCG is 19. Abdomen is soft, nontender nondistended. Feels better after Reglan and is tolerating p.o. without difficulty. She is well-hydrated. Will continue supportive care and follow-up closely with her doctor. Patient counseled regarding signs and symptoms for which I believe and urgent re-evaluation would be necessary. Patient with good understanding of and agreement to plan and is comfortable going home at this time This document was made in part using voice recognition software. While efforts are made to proofread this document, sound alike and grammatical errors may occur. I will have her follow-up with her doctor in the morning to discuss a taper off of her medications that are not safe for - Sepsis Event Vital Signs: Vital Signs - 24 hr 06/26/18 06/26/18 18:40 19:41 Temperature 36.2 C L 36.5 C Heart Rate 75 74 Respiratory 16 17 Rate Blood Pressure 123/74 111/84 H O2 Saturation 100 100 Oxygen O2 Source Room air Departure - Departure Disposition: 01 Home, Self Care Clinical Impression: Qualifiers: Weeks of gestation: less than 8 weeks Qualified Code(s): Z3A.01 - Less than 8 weeks gestation of Condition: Good Instructions: ED Care Follow-Up: Carrie Salmon ARNP [Primary Care Provider] - Within 3 Days Prescriptions: Metoclopramide [Reglan] 10 mg PO Q6H PRN #14 tablet PRN Reason: Nausea / Vomiting Comments: Your test is positive today, your hCG level is at 19 which means you are very early in your . Call your doctor tomorrow to discuss how to taper off your chronic medications. Discharge Date/Time: 06/26/18 19:41
[2018-06-26 19:44] VITALS: BP 111/84
== END 2018-06-26 19:41 | disposition home or self-care (01) ==
LOC: ED 18:35
DX: O21.0 Mild hyperemesis gravidarum (principal); Z3A.01 Less than 8 weeks gestation of pregnancy
CPT/HCPCS: 36415; 80053; 81003; 83690; 84702; 85025; 99283; A9270; 81001; 87086

== ENCOUNTER 2018-07-02 04:23 | Emergency (ER) | payer MEDICAID ==
--- NOTE | 2018-07-02 04:40 | ED Physician Documentation ---
PD HPI FEMALE - Stated complaint Stated Complaint: FEMALE - Chief complaint Chief Complaint: Abd Pain - History obtained from History obtained from: Patient - History of Present Illness Timing - onset: How many minutes ago (90) Timing - details: Abrupt onset Pain level max: 6 Associated symptoms: Back pain, Vaginal bleeding Contributing factors: OB-TALENT DEVELOPMENT COORDINATOR History: Other (this is patients second . first was twin gestation with only one viable delivery) Recently seen: Emergency Dept (several [facility] ED visits this year including twice in June. negative urine HCG 06/15, HCG quantitative on 06/26 was 19) - Additional information Additional information: currently working two jobs. 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 bleeding has resolved but low back pain persists. had spotting yesterday. Review of Systems Constitutional: reports: Reviewed and negative GI: reports: Reviewed and negative : reports: Vaginal bleeding, Now EGA (patient says that by LMP she is 6 weeks ). denies: Dysuria, Frequency Musculoskeletal: reports: Back pain PD PAST MEDICAL HISTORY - Past Medical History Past Medical History: Yes Cardiovascular: None Respiratory: Asthma Neuro: None Endocrine/Autoimmune: None GI: None TALENT DEVELOPMENT COORDINATOR: None : None HEENT: None Psych: Anxiety, Post traumatic stress disorder Musculoskeletal: None Derm: None - Past Surgical History Past Surgical History: Yes HEENT: Tonsil/Adenoidectomy - Present Medications Home Medications: Ambulatory Orders Medication Instructions Recorded Confirmed Sertraline HCl [Zoloft] 200 mg PO DAILY 05/16/18 06/14/18 Silver Sulfadiazine [Silvadene] 1 gm TP BID #20 cream..g. 06/14/18 Ondansetron HCl [Zofran] 4 mg PO Q6H PRN #10 tablet 06/15/18 Metoclopramide [Reglan] 10 mg PO Q6H PRN #14 tablet 06/26/18 traZODone [Desyrel] 06/26/18 06/26/18 - Allergies Allergies/Adverse Reactions: Allergies Allergy/AdvReac Type Severity Reaction Status Date / Time NSAIDS (Non-Steroidal Allergy Anaphylaxis Verified 07/02/18 04:36 Anti-Inflamma ketorolac tromethamine * AdvReac Emesis Verified 07/02/18 04:36 [From Toradol] - Social History Does the pt smoke?: No Smoking Status: Never smoker Does the pt drink ETOH?: Yes Does the pt have substance abuse?: Yes - Immunizations Immunizations are current?: Yes Immunizations: Other immun not current - POLST Patient has POLST: No PD ED PE NORMAL - Vitals Vital signs reviewed: Yes - General General: Alert and oriented X 3, No acute distress, Well developed/nourished - Abdomen Abdomen: Soft, Non tender - Back Back: No CVA TTP, No spinal TTP - Derm Derm: Normal color, Warm and dry Results - Vitals Vitals: Vital Signs - 24 hr 07/02/18 07/02/18 06:54 07:40 Heart Rate 74 74 Respiratory 17 14 Rate Blood Pressure 103/63 92/62 O2 Saturation 99 99 Oxygen O2 Source Room air - Labs Labs: Laboratory Tests 07/02/18 07/02/18 05:21 05:21 WBC 10.6 RBC 4.17 L Hgb 13.3 Hct 38.1 MCV 91.4 MCH 31.8 H MCHC 34.8 RDW 13.2 Plt Count 286 MPV 7.7 L Neut # (Auto) 6.3 Lymph # (Auto) 3.3 [place] # (Auto) 1.0 Eos # (Auto) 0.1 Baso # (Auto) 0.0 Absolute Nucleated RBC 0.01 Nucleated RBC % 0.1 HCG, Quant 381.89 - Rads (name of study) first trimester US Radiology: Prelim report reviewed, See rad report PD MEDICAL DECISION MAKING - ED course Complexity details: reviewed results, re-evaluated patient, considered differential, d/w patient - Sepsis Event Vital Signs: Vital Signs - 24 hr 07/02/18 07/02/18 06:54 07:40 Heart Rate 74 74 Respiratory 17 14 Rate Blood Pressure 103/63 92/62 O2 Saturation 99 99 Oxygen O2 Source Room air Departure - Departure Disposition: 01 Home, Self Care Clinical Impression: Vaginal bleeding during Condition: Good Instructions: ED Abdominal Pain Rule Out Ectopic Comments: Follow up with your helicopter technician: call when the office is next open to arrange for immediate follow-up. Forms: Activity restrictions Discharge Date/Time: 07/02/18 07:49
[2018-07-02 05:26] LABS: BASOPHILS % (AUTO) 0.4 %; EOSINOPHILS # (AUTO) 0.1 10^3/uL (0.0-0.7); EOSINOPHILS % (AUTO) 0.5 %; HGB - HEMOGLOBIN 13.3 g/dL (12.0-16.0); LYMPHOCYTES # (AUTO) 3.3 10^3/uL (1.5-3.5); LYMPHOCYTES % (AUTO) 31.1 %; MEAN CORPUSCULAR HEMOGLOBIN 31.8 pg (27.0-31.0); MEAN CORPUSCULAR HGB CONC 34.8 g/dL (32.0-36.0); MEAN CORPUSCULAR VOLUME 91.4 fL (81.0-99.0); MEAN PLATELET VOLUME 7.7 fL (7.9-10.8); MONOCYTES % (AUTO) 9.1 %; NEUTROPHILS # (AUTO) 6.3 10^3/uL (1.5-6.6); NEUTROPHILS % (AUTO) 58.9 %; PLT - PLATELET COUNT 286 10^3/uL (130-450); RED BLOOD COUNT 4.17 10^6/uL (4.20-5.40); RED CELL DISTRIBUTION WIDTH 13.2 % (12.0-15.0); WHITE BLOOD COUNT 10.6 x10^3/uL (4.8-10.8)
--- NOTE | 2018-07-02 06:29 | Ultrasound Report ---
Reason: , vaginal bleeding Procedure Date: 07/02/2018 Accession Number: [id number] / [id number] Procedure: US - OB First Trimester CPT Code: FULL RESULT: EXAM: FIRST TRIMESTER OBSTETRIC ULTRASOUND (Less than 11 weeks) EXAM DATE: 07/02/2018 06:19 AM. CLINICAL HISTORY: , vaginal bleeding. LMP: 05/04/2018. COMPARISONS: None. TECHNIQUE: Transabdominal and transvaginal ultrasound examination with static image documentation. CLINICAL DATES: EGA 8 weeks 3 days with FRANCO 02/08/2019 based on LMP. ASSESSMENT: Gestational Sac: Not visualized. The endometrium measures 8 mm. MATERNAL STRUCTURES: Uterus: Anteverted. Unremarkable. Cervix: Closed. Right Ovary/Adnexa: Unremarkable. The ovary measures 4.1 x 2.1 x 1.8 cm, volume 8 cc. Left Ovary/Adnexa: 1.6 cm cyst.. The ovary measures 3.9 x 3.4 x 2.6 cm, volume 18 cc. Free Fluid: Moderate amount.. Other: None. IMPRESSION: No definite intrauterine gestation identified. No extrauterine gestation seen. Moderate amount of free fluid in the cul-de-sac. Recommend correlation with serial quantitative beta-hCG. RADIA
[2018-07-02] MEDS ORDERED: HYDROcod/ACETAM 5/325 MG TABLET PO STA (07:01)
[2018-07-02 07:41] VITALS: BP 92/62
== END 2018-07-02 07:49 | disposition home or self-care (01) ==
LOC: ED 04:23
DX: O46.90 Antepartum hemorrhage, unspecified, unspecified trimester (principal)
CPT/HCPCS: 36415; 76801; 84702; 85025; 99283; A9270

== ENCOUNTER 2018-07-19 16:16 | Emergency (ER) | payer MEDICAID ==
[2018-07-19 18:38] LABS: BASOPHILS % (AUTO) 0.3 %; EOSINOPHILS % (AUTO) 0.2 %; HGB - HEMOGLOBIN 13.8 g/dL (12.0-16.0); LYMPHOCYTES # (AUTO) 2.1 10^3/uL (1.5-3.5); LYMPHOCYTES % (AUTO) 30.3 %; MEAN CORPUSCULAR HEMOGLOBIN 31.9 pg (27.0-31.0); MEAN CORPUSCULAR HGB CONC 34.7 g/dL (32.0-36.0); MEAN CORPUSCULAR VOLUME 91.7 fL (81.0-99.0); MEAN PLATELET VOLUME 7.9 fL (7.9-10.8); MONOCYTES # (AUTO) 0.6 10^3/uL (0.0-1.0); MONOCYTES % (AUTO) 8.4 %; NEUTROPHILS # (AUTO) 4.3 10^3/uL (1.5-6.6); NEUTROPHILS % (AUTO) 60.8 %; PLT - PLATELET COUNT 308 10^3/uL (130-450); RED BLOOD COUNT 4.34 10^6/uL (4.20-5.40); RED CELL DISTRIBUTION WIDTH 13.5 % (12.0-15.0)
[2018-07-19 18:48] LABS: ALBUMIN 4.1 g/dL (3.2-5.5); ALBUMIN/GLOBULIN RATIO 1.3 (1.0-2.2); BILIRUBIN,TOTAL 0.7 mg/dL (0.2-1.0); CREATININE 0.5 mg/dL (0.4-1.0); TOTAL PROTEIN 7.2 g/dL (6.7-8.2)
[2018-07-19 19:12] LABS: BILIRUBIN,URINE NEGATIVE (NEGATIVE); GLUCOSE, URINE (UA) NEGATIVE (NEGATIVE); KETONES,URINE (UA) >=80 mg/dL (NEGATIVE); LEUKOCYTE ESTERASE, URINE NEGATIVE (NEGATIVE); NITRITE,URINE NEGATIVE (NEGATIVE); OCCULT BLOOD,URINE NEGATIVE (NEGATIVE); PROTEIN,URINE NEGATIVE (NEGATIVE); UROBILINOGEN,URINE 1 (NORMAL) E.U./dL (NORMAL)
[2018-07-19 19:14] LABS: CLARITY,URINE CLEAR (CLEAR)
[2018-07-19] MEDS ORDERED: METOCLOPRAMIDE 10 MG/2 ML VIAL IVP STA (19:34)
[2018-07-19] MEDS ORDERED: SODIUM CHLORIDE 0.9% 1,000 ML IV ONE (19:34)
[2018-07-19] MEDS ORDERED: ACETAMINOPHEN 500 MG TABLET PO STA (19:34)
--- NOTE | 2018-07-19 20:49 | Ultrasound Report ---
Reason: with pain Procedure Date: 07/19/2018 Accession Number: [id number] / [id number] Procedure: US - OB First Trimester CPT Code: FULL RESULT: EXAM: FIRST TRIMESTER OBSTETRIC ULTRASOUND (Less than 11 weeks) EXAM DATE: 07/19/2018 07:59 PM. CLINICAL HISTORY: with pain. LMP: 05/28/2018. COMPARISONS: OB FIRST TRIMESTER 07/02/2018 5:23 AM. TECHNIQUE: Transabdominal and transvaginal ultrasound examination with static image documentation. ASSESSMENT: Gestational Sac: Single intrauterine. Mean gestational sac diameter: 24 mm = 7 weeks 0 days. Embryo: CRL (crown-rump length) 8 mm = 6 weeks 5 days. Cardiac activity: 124 beats per minute. Yolk sac: 3 mm. Amniotic fluid: Not accurately assessed at this gestational age. Early placenta: Not visible at this gestational age. Other: Questionable subcentimeter perigestational fluid collection.. MATERNAL STRUCTURES: Uterus: Anteverted/Retroverted. Unremarkable. Cervix: Closed. Right Ovary/Adnexa: Unremarkable. Left Ovary/Adnexa: Left ovary is normal in size and vascularity. There is a small left corpus luteal cyst. Free Fluid: None. Other: None. IMPRESSION: Single live intrauterine gestation. [place]-rump length of 0.8 cm corresponds to an estimated gestational age by ultrasound of 6 weeks 5 days, concordant with clinical dating. No significant perigestational or adnexal abnormalities are seen. RADIA
[2018-07-19 21:07] VITALS: BP 98/56
--- NOTE | 2018-07-19 21:20 | ED Physician Documentation ---
History of Present Illness - Stated complaint Stated Complaint: FEM /7WKS+PREG - Chief complaint Chief Complaint: Abd Pain - History obtained from History obtained from: Patient - Additonal information Additional information: 23-year-old female who is roughly 7 weeks presents the emergency department with lower abdominal cramping and vaginal bleeding which she describes as a light spotting which now is resolved. The patient also reports nausea intermittently. Symptoms are described as moderate when they occurred but now only mild. No other associated symptoms. No triggering factors. 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 06/14/18 Ondansetron HCl [Zofran] 4 mg PO Q6H PRN #10 tablet 06/15/18 Metoclopramide [Reglan] 10 mg PO Q6H PRN #14 tablet 06/26/18 traZODone [Desyrel] 06/26/18 06/26/18 Metoclopramide [Reglan] 10 mg PO Q6H PRN #30 tablet 07/19/18 - Allergies Allergies/Adverse Reactions: Allergies Allergy/AdvReac Type Severity Reaction Status Date / Time NSAIDS (Non-Steroidal Allergy Anaphylaxis Verified 07/19/18 16:43 Anti-Inflamma ketorolac tromethamine * AdvReac Emesis Verified 07/19/18 16:43 [From Toradol] - Social History Does the pt smoke?: No Smoking Status: Never smoker Does the pt drink ETOH?: Yes Does the pt have substance abuse?: Yes - Immunizations Immunizations are current?: Yes Immunizations: Other immun not current - POLST Patient has POLST: No PD ED PE NORMAL - General General: Alert and oriented X 3, No acute distress - HEENT HEENT: Atraumatic, PERRL, EOMI, Ears normal - Cardiac Cardiac: RRR - Respiratory Respiratory: No respiratory distress - Abdomen Abdomen: Normal bowel sounds, Soft, Non distended. No: Non tender (Slight tenderness in the lower abdomen, no rebound or peritoneal signs) - Back Back: No CVA TTP - Derm Derm: Normal color - Neuro Neuro: Alert and oriented X 3, Normal speech - Psych Psych: Normal mood Results - Vitals Vitals: Vital Signs - 24 hr 07/19/18 07/19/18 07/19/18 16:38 19:15 20:45 Temperature 36.2 C L Heart Rate 78 72 89 Respiratory 16 20 16 Rate Blood Pressure 97/63 104/67 98/56 L O2 Saturation 98 100 Oxygen O2 Source Room air - Labs Labs: Laboratory Tests 07/19/18 07/19/18 07/19/18 18:21 18:21 18:21 WBC 7.0 RBC 4.34 Hgb 13.8 Hct 39.8 MCV 91.7 MCH 31.9 H MCHC 34.7 RDW 13.5 Plt Count 308 MPV 7.9 Neut # (Auto) 4.3 Lymph # (Auto) 2.1 [place] # (Auto) 0.6 Eos # (Auto) 0.0 Baso # (Auto) 0.0 Absolute Nucleated RBC 0.00 Nucleated RBC % 0.0 Sodium 133 L Potassium 3.6 Chloride 102 Carbon Dioxide 23 Anion Gap 8.0 BUN 7 Creatinine 0.5 Estimated GFR (MDRD) 152 Glucose 90 Calcium 10.0 Total Bilirubin 0.7 AST 26 ALT 25 Alkaline Phosphatase 38 L Total Protein 7.2 Albumin 4.1 Globulin 3.1 Albumin/Globulin Ratio 1.3 Lipase 27 HCG, Quant 685396.00 Urine Color Urine Clarity Urine pH Ur Specific [place] Urine Protein Urine Glucose (UA) Urine Ketones Urine Occult Blood Urine Nitrite Urine Bilirubin Urine Urobilinogen Ur Leukocyte Esterase Ur Microscopic Review Urine Culture Comments Blood Type 07/19/18 07/19/18 18:21 18:51 WBC RBC Hgb Hct MCV MCH MCHC RDW Plt Count MPV Neut # (Auto) Lymph # (Auto) [place] # (Auto) Eos # (Auto) Baso # (Auto) Absolute Nucleated RBC Nucleated RBC % Sodium Potassium Chloride Carbon Dioxide Anion Gap BUN Creatinine Estimated GFR (MDRD) Glucose Calcium Total Bilirubin AST ALT Alkaline Phosphatase Total Protein Albumin Globulin Albumin/Globulin Ratio Lipase HCG, Quant Urine Color YELLOW Urine Clarity CLEAR Urine pH 6.0 Ur Specific [place] 1.025 Urine Protein NEGATIVE Urine Glucose (UA) NEGATIVE Urine Ketones >=80 H Urine Occult Blood NEGATIVE Urine Nitrite NEGATIVE Urine Bilirubin NEGATIVE Urine Urobilinogen 1 (NORMAL) Ur Leukocyte Esterase NEGATIVE Ur Microscopic Review NOT INDICATED Urine Culture Comments NOT INDICATED Blood Type A POSITIVE - Rads (name of study) US OB Radiology: Final report received (IMPRESSION: Single live intrauterine gestation. [place]-rump length of 0.8 days, concordant with clinical dating. No significant perigestational or adnexal abnormalities are seen) PD MEDICAL DECISION MAKING - ED course ED course: On reevaluation the patient resting comfortably and requesting discharge home. 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 I discussed warning signs and recommended returning to the emergency department immediately for any worsening or any concerns. - Sepsis Event Vital Signs: Vital Signs - 24 hr 07/19/18 07/19/18 07/19/18 16:38 19:15 20:45 Temperature 36.2 C L Heart Rate 78 72 89 Respiratory 16 20 16 Rate Blood Pressure 97/63 104/67 98/56 L O2 Saturation 98 100 Oxygen O2 Source Room air Departure - Departure Disposition: 01 Home, Self Care Clinical Impression: Vaginal bleeding before 22 weeks gestation, Abdominal pain affecting Instructions: Preg 1st Trimester, Bleeding Early Preg Prescriptions: Metoclopramide [Reglan] 10 mg PO Q6H PRN #30 tablet PRN Reason: Nausea / Vomiting Comments: Please follow-up with your OB as soon as possible for reevaluation. Please return to the emergency department immediately for worsening symptoms or any concerns
== END 2018-07-19 21:37 | disposition home or self-care (01) ==
LOC: ED 16:16
DX: O20.9 Hemorrhage in early pregnancy, unspecified (principal); O99.89 Other specified diseases and conditions complicating pregnancy, childbirth and the puerperium; R10.9 Unspecified abdominal pain; Z3A.01 Less than 8 weeks gestation of pregnancy
CPT/HCPCS: 36415; 76801; 76817; 80053; 81003; 83690; 84702; 85025; 86900; 86901; 96361; 96374; 99283; 99284; A9270; J2765; 81001; 87086

== ENCOUNTER 2018-07-26 17:31 | Outpatient (CLI) | payer MEDICAID | END 2018-07-26 17:32 | disposition home or self-care (01) | LOC: DI 17:31 | PROVIDERS: ATTEND Registered Nurse | DX: Z53.9 Procedure and treatment not carried out, unspecified reason (principal) ==

== ENCOUNTER 2018-08-02 08:00 | Outpatient (CLI) | payer MEDICAID ==
[2018-08-02 14:45] LABS: MUDS CUTOFF CONCENTRATIONS CUTOFF CONC BELOW:
[2018-08-02 15:58] LABS: AMPHETAMINE SCREEN,URINE NEGATIVE (NEGATIVE); BENZODIAZEPINES SCREEN, URINE NEGATIVE (NEGATIVE); COCAINE SCREEN URINE NEGATIVE (NEGATIVE); METHADONE SCREEN, URINE NEGATIVE (NEGATIVE); METHAMPHETAMINES SCREEN, URINE NEGATIVE (NEGATIVE); OPIATE SCREEN, URINE NEGATIVE (NEGATIVE); OXYCODONE SCREEN, URINE NEGATIVE (NEGATIVE); PROPOXYPHENE SCREEN, URINE NEGATIVE (NEGATIVE); TRICYCLIC ANTIDEPRESSANT,URINE NEGATIVE (NEGATIVE)
== END 2018-08-02 08:01 | disposition home or self-care (01) ==
LOC: LAB.R 08:00
PROVIDERS: ATTEND Nurse Practitioner Obstetrics & Gynecology
DX: Z36.9 Encounter for antenatal screening, unspecified (principal)
CPT/HCPCS: 80306

== ENCOUNTER 2018-08-02 10:42 | Outpatient (CLI) | payer MEDICAID ==
[2018-08-02 10:58] LABS: BASOPHILS % (AUTO) 0.3 %; EOSINOPHILS % (AUTO) 0.5 %; HGB - HEMOGLOBIN 14.2 g/dL (12.0-16.0); LYMPHOCYTES # (AUTO) 2.3 10^3/uL (1.5-3.5); LYMPHOCYTES % (AUTO) 26.9 %; MEAN CORPUSCULAR HEMOGLOBIN 31.4 pg (27.0-31.0); MEAN CORPUSCULAR VOLUME 92.5 fL (81.0-99.0); MEAN PLATELET VOLUME 7.9 fL (7.9-10.8); MONOCYTES # (AUTO) 0.6 10^3/uL (0.0-1.0); MONOCYTES % (AUTO) 7.1 %; NEUTROPHILS # (AUTO) 5.5 10^3/uL (1.5-6.6); NEUTROPHILS % (AUTO) 65.2 %; PLT - PLATELET COUNT 276 10^3/uL (130-450); RED BLOOD COUNT 4.53 10^6/uL (4.20-5.40); RED CELL DISTRIBUTION WIDTH 13.4 % (12.0-15.0); WHITE BLOOD COUNT 8.4 x10^3/uL (4.8-10.8)
[2018-08-02 11:52] LABS: BILIRUBIN,URINE NEGATIVE (NEGATIVE); GLUCOSE, URINE (UA) NEGATIVE (NEGATIVE); KETONES,URINE (UA) NEGATIVE (NEGATIVE); LEUKOCYTE ESTERASE, URINE NEGATIVE (NEGATIVE); NITRITE,URINE NEGATIVE (NEGATIVE); OCCULT BLOOD,URINE NEGATIVE (NEGATIVE); PROTEIN,URINE NEGATIVE (NEGATIVE); UROBILINOGEN,URINE 0.2 (NORMAL) E.U./dL (NORMAL)
[2018-08-02 11:56] LABS: BACTERIA,URINE Rare /HPF (None Seen); CLARITY,URINE CLEAR (CLEAR); RBC,URINE 0-5 /HPF (0-5); SQUAMOUS EPITHELIAL CELL,UR FEW Squamous (<= Few)
[2018-08-03 12:46] LABS: HEPATITIS C ANTIBODY NON-REACTIVE (NON-REACTIVE)
[2018-08-03 12:56] LABS: HEPATITIS B SURFACE ANTIGEN NON-REACTIVE (NON-REACTIVE)
[2018-08-03 15:12] LABS: HIV AG/AB 4TH GEN NON-REACTIVE (NON-REACTIVE)
== END 2018-08-02 10:43 | disposition home or self-care (01) ==
LOC: LAB 10:42
PROVIDERS: ATTEND Nurse Practitioner Obstetrics & Gynecology
DX: Z36.9 Encounter for antenatal screening, unspecified (principal)
CPT/HCPCS: 36415; 80306; 81001; 81599; 85025; 86762; 86803; 86850; 86900; 86901; 87340; 87389

== ENCOUNTER 2018-08-05 10:31 | Outpatient (CLI) | payer MEDICAID ==
--- NOTE | 2018-08-05 16:10 | Ultrasound Report ---
Reason: ENCOUNTER FOR SCREENING,UNSPECIFIED Procedure Date: 08/05/2018 Accession Number: [id number] / [id number] Procedure: US - OB First Trimester CPT Code: FULL RESULT: EXAM: FIRST TRIMESTER OBSTETRIC ULTRASOUND (Less than 11 weeks) EXAM DATE: 08/05/2018 12:18 PM. CLINICAL HISTORY: Encounter for screening, unspecified. LMP: 05/28/2018. COMPARISONS: OB first trimester 07/19/2018 7:59 PM. TECHNIQUE: Transabdominal ultrasound examination with static image documentation. CLINICAL DATES: EGA 9 weeks 6 days with FRANCO 03/04/2019 based on last menstrual period. EGA 8 weeks 5 days with FRANCO 03/12/2019 based on current ultrasound. ASSESSMENT: Gestational Sac: Single intrauterine. Mean gestational sac diameter: 48.0 mm = 10 weeks/0 days. Embryo: CRL (crown-rump length) 22.3 mm = 8 weeks/5 days. Cardiac activity: 169 beats per minute. Yolk sac: 3.1 mm. Amniotic fluid: Not accurately assessed at this gestational age. Early placenta: Not visible at this gestational age. Other: No perigestational fluid collection demonstrated. MATERNAL STRUCTURES: Uterus: Anteverted. Unremarkable. Cervix: Closed. Right Ovary/Adnexa: The ovary measures 3.1 x 1.9 x 2.4 cm, volume 7.4 cc. Unremarkable. Left Ovary/Adnexa: The ovary measures 3.7 x 2.7 x 2.0 cm, volume 10 cc. Unremarkable. Free Fluid: None. Other: None. IMPRESSION: 1. Single viable intrauterine at EGA 8 weeks 5 days with FRANCO 03/12/2019 based on crown-rump length, which is mildly discordant with the clinical date based on last menstrual period which results in an estimated due date of 03/04/2019. 2. Assigned dating is FRANCO 8 weeks 5 days based on current ultrasound. RADIA
== END 2018-08-05 10:32 | disposition home or self-care (01) ==
LOC: DI 10:31
PROVIDERS: ATTEND Nurse Practitioner Obstetrics & Gynecology
DX: Z36.9 Encounter for antenatal screening, unspecified (principal)
CPT/HCPCS: 76801

== ENCOUNTER 2018-08-27 10:37 | Emergency (ER) | payer MEDICAID ==
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
[2018-08-27 11:15] LABS: BILIRUBIN,URINE NEGATIVE (NEGATIVE); GLUCOSE, URINE (UA) NEGATIVE (NEGATIVE); KETONES,URINE (UA) NEGATIVE (NEGATIVE); LEUKOCYTE ESTERASE, URINE NEGATIVE (NEGATIVE); NITRITE,URINE NEGATIVE (NEGATIVE); OCCULT BLOOD,URINE NEGATIVE (NEGATIVE); PH,URINE 7.5 PH (5.0-7.5); PROTEIN,URINE NEGATIVE (NEGATIVE); UROBILINOGEN,URINE 0.2 (NORMAL) E.U./dL (NORMAL)
[2018-08-27 11:18] LABS: CLARITY,URINE CLOUDY (CLEAR)
[2018-08-27 11:19] LABS: AMORPHOUS SEDIMENT,UR Moderate /LPF; BACTERIA,URINE Rare /HPF (None Seen); RBC,URINE None Seen /HPF (0-5); SQUAMOUS EPITHELIAL CELL,UR MANY Squamous (<= Few)
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
[2018-08-27 12:59] VITALS: BP 110/69
== END 2018-08-27 12:59 | disposition home or self-care (01) ==
LOC: ED 10:37
DX: O99.89 Other specified diseases and conditions complicating pregnancy, childbirth and the puerperium (principal); S30.1XXA Contusion of abdominal wall, initial encounter; V89.2XXA Person injured in unspecified motor-vehicle accident, traffic, initial encounter; Z3A.12 12 weeks gestation of pregnancy
CPT/HCPCS: 76801; 81001; 81003; 87086; 99283

== ENCOUNTER 2018-09-01 12:04 | Outpatient (CLI) | payer SELFPAY | END 2018-09-01 12:05 | disposition home or self-care (01) | LOC: LAB 12:04 | PROVIDERS: ATTEND Registered Nurse | DX: Z82.79 Family history of other congenital malformations, deformations and chromosomal abnormalities (principal) | CPT/HCPCS: 36415 ==

== ENCOUNTER 2018-09-16 09:52 | Emergency (ER) | payer MEDICAID ==
[2018-09-16 11:28] LABS: BILIRUBIN,URINE NEGATIVE (NEGATIVE); GLUCOSE, URINE (UA) NEGATIVE (NEGATIVE); KETONES,URINE (UA) NEGATIVE (NEGATIVE); LEUKOCYTE ESTERASE, URINE LARGE (NEGATIVE); NITRITE,URINE NEGATIVE (NEGATIVE); OCCULT BLOOD,URINE NEGATIVE (NEGATIVE); PH,URINE 6.5 PH (5.0-7.5); PROTEIN,URINE NEGATIVE (NEGATIVE); UROBILINOGEN,URINE 0.2 (NORMAL) E.U./dL (NORMAL)
[2018-09-16 11:37] LABS: CLARITY,URINE HAZY (CLEAR); RBC,URINE 0-5 /HPF (0-5); SQUAMOUS EPITHELIAL CELL,UR MOD Squamous (<= Few)
[2018-09-16 11:38] LABS: BACTERIA,URINE Moderate /HPF (None Seen)
[2018-09-16] MEDS ORDERED: NITROFURANTOIN MACRO 100 MG CAPSULE PO STA (12:09)
[2018-09-16] MEDS ORDERED: HYDROcod/ACETAM 5/325 MG TABLET PO STA (12:23)
[2018-09-16] MEDS ORDERED: cefTRIAXone 1 GM VIAL IM STA (12:23)
[2018-09-16] MEDS ORDERED: LIDOCAINE 1% 2 ML VIAL SUBQ ONE (12:23)
--- NOTE | 2018-09-16 12:42 | ED Physician Documentation ---
PD HPI FEMALE - Stated complaint Stated Complaint: FEMALE /16 WKS - Chief complaint Chief Complaint: Abd Pain - History of Present Illness Timing - onset: Yesterday Associated symptoms: Back pain, Hematuria Contributing factors: (16 weeks gestation.) OB-ROPEMAN History: G (2), P (1) - Treatment prior to arrival Treatment prior to arrival: Tylenol without relief. - Additional information Additional information: The patient is a 23-year-old female who presents with left lower back pain that started yesterday, described as stabbing. This morning she noticed hematuria. She denies dysuria, vaginal bleeding, fever, or lightheadedness. She is currently at 16 weeks gestation. There've been no complications during this . She has used Tylenol, without relief. Review of Systems Constitutional: denies: Fever Nose: denies: Congestion Throat: denies: Sore throat Cardiac: denies: Chest pain / pressure Respiratory: denies: Dyspnea, Cough GI: reports: Nausea. denies: Abdominal Pain, Vomiting, Diarrhea : reports: Frequency, Hematuria, Now EGA (16 weeks gestation.). denies: Dysuria Skin: denies: Rash Musculoskeletal: reports: Back pain (lower back.) Neurologic: denies: Focal weakness, Numbness, Headache PD PAST MEDICAL HISTORY - Past Medical History Cardiovascular: None Respiratory: Asthma Neuro: None Endocrine/Autoimmune: None GI: None ROPEMAN: None : None HEENT: None Psych: Anxiety, Post traumatic stress disorder Musculoskeletal: None Derm: None - Past Surgical History Past Surgical History: Yes HEENT: Tonsil/Adenoidectomy - Present Medications Home Medications: Ambulatory Orders Medication Instructions Recorded Confirmed HYDROcod/ACETAM 5/325 [[place] 5/325] 1 - 2 ea PO Q6H PRN #15 tablet 08/27/18 Hydrocodone/Acetaminophen 1 - 2 each PO Q6H PRN #10 tablet 09/16/18 [Hydrocodon-Acetaminophen 5-325] Nitrofurantoin Monohyd/M-Cryst 100 mg PO BID #10 capsule 09/16/18 [Macrobid 100 mg Capsule] - Allergies Allergies/Adverse Reactions: Allergies Allergy/AdvReac Type Severity Reaction Status Date / Time NSAIDS (Non-Steroidal Allergy Anaphylaxis Verified 09/16/18 10:02 Anti-Inflamma ketorolac tromethamine * AdvReac Emesis Verified 09/16/18 10:02 [From Toradol] - Social History Does the pt smoke?: No Smoking Status: Never smoker Does the pt drink ETOH?: Yes Does the pt have substance abuse?: Yes - Immunizations Immunizations are current?: Yes Immunizations: Other immun not current - POLST Patient has POLST: No PD ED PE NORMAL - Vitals Vital signs reviewed: Yes (normal) - General General: Alert and oriented X 3, Well developed/nourished - HEENT HEENT: Atraumatic, Moist mucous membranes, Pharynx benign - Neck Neck: No adenopathy, No JVD - Cardiac Cardiac: RRR, No murmur - Respiratory Respiratory: No respiratory distress, Clear bilaterally - Abdomen Abdomen: Soft, Non tender, Other (Gravid, with normal heart tones.) - Back Back: No CVA TTP - Derm Derm: No rash - Extremities Extremities: No edema, No calf tenderness / cord - Neuro Neuro: Alert and oriented X 3, No motor deficit, Normal speech Results - Vitals Vitals: Oxygen O2 Source Room air - Labs Labs: Laboratory Tests 09/16/18 10:07 Urine Color YELLOW Urine Clarity HAZY Urine pH 6.5 Ur Specific [place] 1.015 Urine Protein NEGATIVE Urine Glucose (UA) NEGATIVE Urine Ketones NEGATIVE Urine Occult Blood NEGATIVE Urine Nitrite NEGATIVE Urine Bilirubin NEGATIVE Urine Urobilinogen 0.2 (NORMAL) Ur Leukocyte Esterase LARGE H Urine RBC 0-5 Urine WBC 6-10 H Ur Squamous Epith Cells MOD Squamous H Urine Bacteria Moderate H Ur Microscopic Review INDICATED Urine Culture Comments NOT INDICATED PD MEDICAL DECISION MAKING - ED course Complexity details: reviewed results, re-evaluated patient, considered differential, d/w patient, d/w family ED course: The patient's presentation is most consistent with urinary tract infection during second trimester . Her presentation does not suggest pyelonephritis or sepsis. Treatment in the emergency department included administration of ceftriaxone 1 g IM, nitrofurantoin 100 mg orally, and Vicodin 1 tablet orally. She is being discharged with prescriptions for nitrofurantoin and Vicodin, 10 tablets. I discussed with her and her mother the expected course of illness, antibiotic treatment and outpatient follow-up, as well as potentially worrisome signs or symptoms that should prompt reevaluation department. Departure - Departure Disposition: 01 Home, Self Care Clinical Impression: Urinary tract infection Qualifiers: Urinary tract infection type: acute cystitis Hematuria presence: with hematuria Qualified Code(s): N30.01 - Acute cystitis with hematuria Qualifiers: Weeks of gestation: 16 weeks Qualified Code(s): Z3A.16 - 16 weeks gestation of Condition: Stable Instructions: ED UTI Cystitis Female Follow-Up: Carrie Salmon ARNP [Credentialed Staff Provider] - [facility] [Provider Group] Prescriptions: Hydrocodone/Acetaminophen [Hydrocodon-Acetaminophen 5-325] 1 - 2 each PO Q6H PRN #10 tablet PRN Reason: pain Nitrofurantoin Monohyd/M-Cryst [Macrobid 100 mg Capsule] 100 mg PO BID #10 capsule Comments: Drink plenty of fluids, including cranberry juice. Take Macrobid twice daily as prescribed. You can use Tylenol for fever or discomfort. You can use an occasional Vicodin if needed for pain. Follow-up with your primary physician or your branch lending manager within 1 week. Call to schedule appointment. Return to the emergency department if you develop increasing pain, fever with shaking chills, persistent vomiting, or otherwise worsening symptoms. Discharge Date/Time: 09/16/18 13:04
[2018-09-16 12:57] VITALS: BP 97/65
== END 2018-09-16 13:04 | disposition home or self-care (01) ==
LOC: ED 09:52
DX: O99.89 Other specified diseases and conditions complicating pregnancy, childbirth and the puerperium (principal); N30.01 Acute cystitis with hematuria; Z3A.16 16 weeks gestation of pregnancy
CPT/HCPCS: 81001; 96372; 99283; A9270; 81003; 87086

== ENCOUNTER 2018-10-14 12:25 | Outpatient (CLI) | payer MEDICAID ==
--- NOTE | 2018-10-15 15:33 | Ultrasound Report ---
Reason: ENCTR FOR SUPRVSN OF NORMAL , 2ND TRIM Procedure Date: 10/14/2018 Accession Number: [id number] / [id number] Procedure: US - OB Detailed Eval CPT Code: FULL RESULT: EXAM: COMPLETE OBSTETRICAL ULTRASOUND EXAM DATE: 10/14/2018 03:26 PM. CLINICAL HISTORY: anatomic survey for 23-year-old female, 19 weeks 6 days by LMP. COMPARISON: Multiple prior studies, most recent on 08/27/2018. TECHNIQUE: Real-time sonographic evaluation of the fetus performed by the woods overseer. Multiple benefits representative static images were saved for review. Additional transvaginal imaging to more accurately evaluate cervical length/placental position/etc. DATING: EGA 19 weeks 6 days with FRANCO 03/04/2019 based on LMP. EGA 19 weeks 2 days based on the current ultrasound. GENERAL EVALUATION Raymond . Cardiac activity: 148 bpm. movement: Visualized. Presentation: Breech. Placenta: Posterior position. No evidence for previa. Umbilical cord: 3 vessel cord. Central placental cord origin. Amniotic fluid: Subjectively normal. MVP = 3.6 cm, MARRY = 12.25 cm. BIOMETRY Bi-Parietal Diameter (BPD): 4.39 cm, 19 weeks 2 days Head Circumference (HC): 16.48 cm, 19 weeks 1 day Abdominal Circumference (AC): 13.56 cm, 19 weeks 0 days Femur Length (FL): 2.89 cm, 18 weeks 6 days. Estimated Weight: 268 grams. ANATOMY The intracranial structures, profile, face/lips, spine, stomach, abdominal wall and cord insertion, diaphragm, kidneys, bladder, and extremities were visualized and demonstrate no abnormality. 4 vessel heart and profile/nasal bone not well delineated secondary to position. MATERNAL STRUCTURES Uterus: Unremarkable. Cervix: Long and closed. Transabdominal length 4.25 cm. Right ovary/adnexa: Unremarkable. Left ovary/adnexa: Unremarkable. Free fluid: None. IMPRESSION: Single living intrauterine fetus currently in breech presentation, 19 weeks 2 days by current ultrasound, correlates well with clinical dates by LMP of 19 weeks 6 days. Posterior placenta without previa. Normal amount of amniotic fluid. Less than optimal visualization of four-chamber heart and profile/nasal bones secondary to position. Limited follow-up OB ultrasound recommended in 7-14 days for completion of anatomic survey. Remainder of anatomy unremarkable without anomalies noted. RADIA
== END 2018-10-14 12:26 | disposition home or self-care (01) ==
LOC: DI 12:25
PROVIDERS: ATTEND Registered Nurse
DX: Z34.82 Encounter for supervision of other normal pregnancy, second trimester (principal); O32.1XX0 Maternal care for breech presentation, not applicable or unspecified
CPT/HCPCS: 76811